=== PATIENT | male | born 1950 | race Caucasian/White ===

== ENCOUNTER 2018-12-29 16:22 | Emergency (ER) | payer MEDICARE, OTHER, SELFPAY ==
--- NOTE | 2018-12-29 16:26 | DI.RAD.S_ITS ---
PROCEDURE: XR CHEST 1V INDICATIONS: chest pain TECHNIQUE: One view of the chest was acquired. COMPARISON: None. FINDINGS: Surgical changes and devices: None. Lungs and pleura: Lungs are clear. No pleural effusions or pneumothorax. Mediastinum: Mediastinal contours appear normal. Heart size is normal. Large hiatal hernia Bones and chest wall: No suspicious bony lesions. Overlying soft tissues appear unremarkable. IMPRESSION: No acute disease. Large hiatal hernia. Dictated by: Brandon Castellano M.D. on 12/29/2018 at 15:45 Approved by: Brandon Castellano M.D. on 12/29/2018 at 15:45
[2018-12-29 16:40] LABS: Basophils Absolute Auto 100 /uL (0-100); Basophils Percent Auto 0.8 % (0-2); Eosinophils Absolute Auto 100 /uL (0-450); Eosinophils Percent Auto 1.4 % (2-4); Hematocrit 43.3 % (41-53); Hemoglobin 14.7 g/dL (13.5-17.5); Lymphocytes Absolute Auto 1100 /uL (1100-4500); Lymphocytes Percent Auto 13.4 % (25-40); Mean Corpuscular Hemoglobin 28.5 PG (26-34); Mean Corpuscular Volume 83.8 fL (80-100); Monocytes Absolute Auto 600 /uL (0-900); Monocytes Percent Auto 7.6 % (3-14); Neutrophils Absolute Auto 6400 /uL (1500-7000); Neutrophils Percent Auto 76.8 % (50-75); Platelet Count 154 X10^3/uL (150-400); Red Blood Cell Count 5.16 X10^6/uL (4.5-5.9); Red Cell Distribution Width 14.3 % (11.6-14.8); White Blood Cell Count 8.3 X10^3/uL (4.5-11.0)
[2018-12-29 16:41] LABS: Add Manual Diff / Slide Review SLIDE REVIEW
[2018-12-29 16:43] LABS: Alanine Aminotransferase 34 IU/L (21-72); Albumin 4.5 g/dL (3.5-5.0); Albumin Globulin Ratio 1.7 (1.0-2.8); Alkaline Phosphatase 102 U/L (38-126); Aspartate Aminotransferase 22 IU/L (17-59); Bilirubin Total 0.7 mg/dL (0.2-1.3); Blood Urea Nitrogen 16 mg/dL (9-20); Carbon Dioxide 27 mmol/L (22-32); Chloride 102 mmol/L (98-107); Creatine Kinase 60 U/L (55-170); Estimated Glomerular Filt Rate > 60.0 mL/min (>60); Globulin 2.7 g/dL (1.7-4.1); Glucose 134 mg/dL (80-110); HEMOLYSIS < 15 (0-50); Potassium 4.3 mmol/L (3.4-5.1); Sodium 137 mmol/L (137-145); Total Protein 7.2 g/dL (6.3-8.2)
[2018-12-29 16:54] LABS: B Type Natriuretic Peptide < 100 (<100)
[2018-12-29 16:56] LABS: Troponin I 0.061 ng/mL (0.01-0.034)
[2018-12-29 17:00] VITALS: BP 157/89; PULSE 92; RESP 15; O2SAT 98
[2018-12-29 17:05] LABS: RBC Morphology Normal Morphology
--- NOTE | 2018-12-29 17:28 | ED.CHESTPAIN ---
HPI - Chest Pain General Chief Complaint: Chest Pain Stated Complaint: sob upon exertion, intermittent chest pain Time Seen by Provider: 12/29/18 17:27 Source: patient and EMS Mode of arrival: EMS Limitations: no limitations History of Present Illness HPI narrative: 68-year-old male comes in with complaint of chest pain in the setting of exertion. Started 6 days ago. He states it has been happening once or twice daily. When he exerts himself. He gets discomfort in his kind of left upper chest axillary area radiating down his left arm. He states it will feel little short of breath. He might feel warm. He has not got particularly sweaty. He has not been nauseated or vomiting. He denies passing out. Patient does not have any known coronary artery disease but has not seen a physician in many years. He has a brother who is treated for hypertension and dyslipidemia. Denies any MIs or strokes in appearance course of blinks. He smokes cigars. Drinks alcohol daily 1-2 alcoholic drinks sometimes hard liquor sometimes severe. Denies illicit. Related Data Home Medications Medication Instructions Recorded Confirmed aspirin 325 mg PO DAILY PRN 12/29/18 12/29/18 aspirin [Aspirin Low Dose] 81 mg PO DAILY 12/29/18 12/29/18 Allergies Allergy/AdvReac Type Severity Reaction Status Date / Time No Known Drug Allergies Allergy Verified 12/29/18 18:02 Review of Systems Review of Systems ROS Unobtainable: All systems reviewed & are unremarkable except as noted in HPI and below Constitutional Denies fever(s) Cardiovascular Denies chest pain at rest, Reports chest pain with activity, Denies diaphoresis, Denies syncope, Denies edema, Denies irregular heart rhythm, Denies lightheadedness, Reports radiating jaw, neck or arm pain, Denies palpitations, Denies dyspnea, Reports dyspnea on exertion and Denies orthopnea Respiratory Denies dyspnea and Reports dyspnea on exertion Gastrointestinal Gastrointestinal: Denies abdominal pain, Denies change in bowel habits, Denies diarrhea, Denies nausea and Denies vomiting Genitourinary Denies dysuria and Denies urinary frequency Integumentary/Breasts Denies rash Neurologic Denies syncope Endocrine Denies palpitations [facility] Surgical History H/O: knee surgery (Chronic) History of inguinal hernia repair (Chronic) Social History (Updated 12/29/18 @ 17:52 by Claudia Brasher DO) Smoking Status: Current some day smoker Smokeless tobacco user: other alcohol intake: current substance use type: does not use Social History Smoking Status: Current some day smoker Smokeless tobacco user: other alcohol intake: current substance use type: does not use Exam Narrative Exam Narrative: GENERAL: Alert and oriented x three, obese, well-appearing male in no acute distress. HEENT: Head normocephalic, atraumatic, EOMI, xanthelasma bilaterally, pupils reactive, face symmetric, moist mucous membranes NECK: Supple, full range of motion CARDIOVASCULAR: Regular rate and rhythm without murmurs, rubs or gallops. RESPIRATORY: Breath sounds equal bilaterally, no wheezes rales or rhonchi. ABDOMEN: Soft, nontender. Normoactive bowel sounds all 4 quadrants. No guarding or rebound, rigidity, no mass : No CVA tenderness EXTREMITIES: Normal range of motion, no edema. Neurovascularly intact NEUROLOGICAL: Cranial nerves II through XII grossly intact. Moving all extremities SKIN: Warm, dry, no petechiae, no rashes or lesions on chest or arm noted. Initial Vital Signs Initial Vital Signs: Vital Signs Pulse Rate 92 H 12/29/18 17:00 Respiratory Rate 15 12/29/18 17:00 Blood Pressure 157/89 H 12/29/18 17:00 Pulse Oximetry 98 12/29/18 17:00 Scores HEART Score Heart Score history: Highly Suspicious Heart Score EKG: Significant ST depression Heart Score Age: > or = 65 years old Heart Score risk factors: 1-2 risk factors Heart Score troponin: 1-3 times normal limit Heart Score Total: 8 Course Orders Ordered: ED Orders 12/29/18 16:25 BNP [B Type Natriuretic Peptide] Stat CBC [Complete Blood Count AUTO DIFF] Stat Comprehensive Metabolic Panel Stat Troponin & CK Cardiac Panel Stat 12/29/18 16:26 XR chest 1V Stat EKG-12 Lead Stat 12/29/18 17:36 Troponin & CK Cardiac Panel Stat 12/29/18 19:30 EKG-12 Lead Stat Discontinued Medications Metoprolol Tartrate (Lopressor) 25 mg PO NOW ONE Stop: 12/29/18 19:24 Last Admin: 12/29/18 19:28 Dose: 25 mg Vital Signs - 8 hr 12/29/18 17:00 12/29/18 18:00 12/29/18 18:14 Pulse Rate 92 H 88 89 Respiratory Rate 15 16 18 Blood Pressure [Left Arm] 157/89 H 162/106 H 171/105 H Pulse Oximetry 98 100 98 MDM - Chest Pain Lab Data Attestation: I reviewed the patient's lab results. Result diagrams: 12/29/18 16:25 12/29/18 16:25 Lab Results 12/29/18 12/29/18 Range/Units 16:25 16:25 WBC 8.3 (4.5-11.0) X10^3/uL RBC 5.16 (4.5-5.9) X10^6/uL Hgb 14.7 (13.5-17.5) g/dL Hct 43.3 (41-53) % MCV 83.8 (80-100) fL MCH 28.5 (26-34) PG MCHC 34.0 (30-36) % RDW 14.3 (11.6-14.8) % Plt Count 154 (150-400) X10^3/uL Neut % (Auto) 76.8 H (50-75) % Lymph % (Auto) 13.4 L (25-40) % [place] % (Auto) 7.6 (3-14) % Eos % (Auto) 1.4 L (2-4) % Baso % (Auto) 0.8 (0-2) % Neut # (Auto) 6400 (6834-8174) /uL Lymph # (Auto) 1100 (6226-5569) /uL [place] # (Auto) 600 (0-900) /uL Eos # (Auto) 100 (0-450) /uL Baso # (Auto) 100 (0-100) /uL Plt Morphology Comment RBC Morphology Normal morphology Sodium 137 (137-145) mmol/L Potassium 4.3 (3.4-5.1) mmol/L Chloride 102 (98-107) mmol/L Carbon Dioxide 27 (22-32) mmol/L BUN 16 (9-20) mg/dL Creatinine 1.00 (0.66-1.25) mg/dL Estimated GFR > 60.0 (>60) mL/min BUN/Creatinine Ratio 16.0 (6-22) Glucose 134 H (80-110) mg/dL Calcium 11.0 H (8.4-10.2) mg/dL Total Bilirubin 0.7 (0.2-1.3) mg/dL AST 22 (17-59) IU/L ALT 34 (21-72) IU/L Alkaline Phosphatase 102 (38-126) U/L Total Creatine Kinase 60 (55-170) U/L CK-MB (CK-2) TNP CK-MB (CK-2) Rel Index TNP Troponin I 0.061 H (0.01-0.034) ng/mL B-Natriuretic Peptide < 100 (<100) Total Protein 7.2 (6.3-8.2) g/dL Albumin 4.5 (3.5-5.0) g/dL Globulin 2.7 (1.7-4.1) g/dL Albumin/Globulin Ratio 1.7 (1.0-2.8) Urine Dip Bedside Urine Glucose Negative Bedside Urine Bilirubin - Negative Bedside Urine Ketone - Negative Urine Specific Anthony 1.020 Bedside Urine Occult Blood - Negative Bedside Urine pH 6 Bedside Urine Protein - Negative Bedside Urine Urobilinogen - Negative Bedside Urine Nitrite - Negative Bedside Urine Leukocytes - Negative Esterase Imaging Data Chest x-ray: Radiologist's impression: [place] [address] XRay Report Signed Patient: Tatyana Givens#: [id number] : 1Acct:[id number] Age/Sex: 68 / MDate of Service: 12/29/18 Loc: ED Accession Number: [id number] Procedure: XR chest 1V Ordering Provider: Claudia Brasher D.O. PROCEDURE: XR CHEST 1V INDICATIONS: chest pain TECHNIQUE: One view of the chest was acquired. COMPARISON: None. FINDINGS: Surgical changes and devices: None. Lungs and pleura: Lungs are clear. No pleural effusions or pneumothorax. Mediastinum: Mediastinal contours appear normal. Heart size is normal. Large hiatal hernia Bones and chest wall: No suspicious bony lesions. Overlying soft tissues appear unremarkable. IMPRESSION: No acute disease. Large hiatal hernia. Dictated by: Brandon Castellano M.D. on 12/29/2018 at 15:45 Approved by: Brandon Castellano M.D. on 12/29/2018 at 15:45 ECG Data Attestation: I personally reviewed and interpreted this ECG as follows: Prior ECG tracings: not available for review Interpretation: Sinus rhythm and a rate of 72 TX 155 QRS of 90 QTC of 370. Nonspecific change. Patient appears to have a little bit of ST depression in V4,5 and 6. No elevation noted. EKG 2. Shows sinus rhythm, rate 88 P are 154 QRS of 88 with a QTC of 372. Patient does appear to have some ST elevation in lateral leads V3 V4, no ST elevation is appreciated. Segments appear similar to prior from today although patient has little bit more low voltage in lead 2 MDM Narrative Medical decision making narrative: Patient's history is concerning for a stable angina. Patient's symptoms started just 6 days ago. Patient took 325 mg aspirin in the morning and then took an additional 324 mg aspirin this afternoon. Lab work does show an indeterminate troponin. Patient any prior troponin. Glucose is slightly elevated. Chest x-ray shows large hiatal hernia but no acute changes. I suspect patient has a stable angina. He does not have any follow-up with primary care. Spoke with Cardiology Dr. Rosario, she recommend stress testing. If positive or elevation she would recommend cardiac catheterization. If patient is transferred to [facility] she would asked to be re-contacted so they will see the patient tomorrow. Spoke with Dr. Milton hospitalist at [facility]. If patient does not have troponin trending upward, they would accept patient for observation and stress testing in the morning. If patient's troponin is trending upward/positive she would ask for transfer. Patient is also call to the hospitalist at [facility]. Discussed at length with patient he is a little reluctant initially to his day but he does not have a primary care and I think he would have difficulty getting all of the care that he needs it does not stay for treatment. He is willing to stay at least for the 2nd troponin and EKG. Repeat EKG appears similar to first. Troponin pending while signed out to Dr. Pickard. Discharge Plan Departure Clinical Impression: Stable angina Prescriptions: No Action aspirin [Aspirin Low Dose] 81 mg Tablet,Delayed Release (Dr/Ec) 81 mg PO DAILY RF: 0 aspirin 325 mg Tablet 325 mg PO DAILY PRN (Reason: Pain, Mild) RF: 0
--- NOTE | 2018-12-29 17:49 | ED_ITS ---
HPI - Chest Pain General Chief Complaint: Chest Pain Stated Complaint: sob upon exertion, intermittent chest pain Time Seen by Provider: 12/29/18 17:27 Source: patient and EMS Mode of arrival: EMS Limitations: no limitations History of Present Illness HPI narrative: 68-year-old male comes in with complaint of chest pain in the setting of exertion. Started 6 days ago. He states it has been happening once or twice daily. When he exerts himself. He gets discomfort in his kind of left upper chest axillary area radiating down his left arm. He states it will feel little short of breath. He might feel warm. He has not got particularly sweaty. He has not been nauseated or vomiting. He denies passing out. Patient does not have any known coronary artery disease but has not seen a physician in many years. He has a brother who is treated for hypertension and dyslipidemia. Denies any MIs or strokes in appearance course of blinks. He smokes cigars. Drinks alcohol daily 1-2 alcoholic drinks sometimes hard liquor sometimes severe. Denies illicit. Related Data Home Medications Medication Instructions Recorded Confirmed aspirin 325 mg PO DAILY PRN 12/29/18 12/29/18 aspirin [Aspirin Low Dose] 81 mg PO DAILY 12/29/18 12/29/18 Allergies Allergy/AdvReac Type Severity Reaction Status Date / Time No Known Drug Allergies Allergy Verified 12/29/18 18:02 Review of Systems Review of Systems ROS Unobtainable: All systems reviewed & are unremarkable except as noted in HPI and below Constitutional Denies fever(s) Cardiovascular Denies chest pain at rest, Reports chest pain with activity, Denies diaphoresis, Denies syncope, Denies edema, Denies irregular heart rhythm, Denies lightheadedness, Reports radiating jaw, neck or arm pain, Denies palpitations, Denies dyspnea, Reports dyspnea on exertion and Denies orthopnea Respiratory Denies dyspnea and Reports dyspnea on exertion Gastrointestinal Gastrointestinal: Denies abdominal pain, Denies change in bowel habits, Denies diarrhea, Denies nausea and Denies vomiting Genitourinary Denies dysuria and Denies urinary frequency Integumentary/Breasts Denies rash Neurologic Denies syncope Endocrine Denies palpitations [facility] Surgical History H/O: knee surgery (Chronic) History of inguinal hernia repair (Chronic) Social History (Updated 12/29/18 @ 17:52 by Claudia Brasher DO) Smoking Status: Current some day smoker Smokeless tobacco user: other alcohol intake: current substance use type: does not use Social History Smoking Status: Current some day smoker Smokeless tobacco user: other alcohol intake: current substance use type: does not use Exam Narrative Exam Narrative: GENERAL: Alert and oriented x three, obese, well-appearing male in no acute distress. HEENT: Head normocephalic, atraumatic, EOMI, xanthelasma bilaterally, pupils reactive, face symmetric, moist mucous membranes NECK: Supple, full range of motion CARDIOVASCULAR: Regular rate and rhythm without murmurs, rubs or gallops. RESPIRATORY: Breath sounds equal bilaterally, no wheezes rales or rhonchi. ABDOMEN: Soft, nontender. Normoactive bowel sounds all 4 quadrants. No guarding or rebound, rigidity, no mass : No CVA tenderness EXTREMITIES: Normal range of motion, no edema. Neurovascularly intact NEUROLOGICAL: Cranial nerves II through XII grossly intact. Moving all extremities SKIN: Warm, dry, no petechiae, no rashes or lesions on chest or arm noted. Initial Vital Signs Initial Vital Signs: Vital Signs Pulse Rate 92 H 12/29/18 17:00 Respiratory Rate 15 12/29/18 17:00 Blood Pressure 157/89 H 12/29/18 17:00 Pulse Oximetry 98 12/29/18 17:00 Scores HEART Score Heart Score history: Highly Suspicious Heart Score EKG: Significant ST depression Heart Score Age: > or = 65 years old Heart Score risk factors: 1-2 risk factors Heart Score troponin: 1-3 times normal limit Heart Score Total: 8 Course Orders Ordered: ED Orders 12/29/18 16:25 BNP [B Type Natriuretic Peptide] Stat CBC [Complete Blood Count AUTO DIFF] Stat Comprehensive Metabolic Panel Stat Troponin & CK Cardiac Panel Stat 12/29/18 16:26 XR chest 1V Stat EKG-12 Lead Stat 12/29/18 17:36 Troponin & CK Cardiac Panel Stat 12/29/18 19:30 EKG-12 Lead Stat Discontinued Medications Metoprolol Tartrate (Lopressor) 25 mg PO NOW ONE Stop: 12/29/18 19:24 Last Admin: 12/29/18 19:28 Dose: 25 mg Vital Signs - 8 hr 12/29/18 17:00 12/29/18 18:00 12/29/18 18:14 Pulse Rate 92 H 88 89 Respiratory Rate 15 16 18 Blood Pressure [Left Arm] 157/89 H 162/106 H 171/105 H Pulse Oximetry 98 100 98 MDM - Chest Pain Lab Data Attestation: I reviewed the patient's lab results. Result diagrams: 12/29/18 16:25 12/29/18 16:25 Lab Results 12/29/18 12/29/18 Range/Units 16:25 16:25 WBC 8.3 (4.5-11.0) X10^3/uL RBC 5.16 (4.5-5.9) X10^6/uL Hgb 14.7 (13.5-17.5) g/dL Hct 43.3 (41-53) % MCV 83.8 (80-100) fL MCH 28.5 (26-34) PG MCHC 34.0 (30-36) % RDW 14.3 (11.6-14.8) % Plt Count 154 (150-400) X10^3/uL Neut % (Auto) 76.8 H (50-75) % Lymph % (Auto) 13.4 L (25-40) % [place] % (Auto) 7.6 (3-14) % Eos % (Auto) 1.4 L (2-4) % Baso % (Auto) 0.8 (0-2) % Neut # (Auto) 6400 (6910-9708) /uL Lymph # (Auto) 1100 (2531-9788) /uL [place] # (Auto) 600 (0-900) /uL Eos # (Auto) 100 (0-450) /uL Baso # (Auto) 100 (0-100) /uL Plt Morphology Comment RBC Morphology Normal morphology Sodium 137 (137-145) mmol/L Potassium 4.3 (3.4-5.1) mmol/L Chloride 102 (98-107) mmol/L Carbon Dioxide 27 (22-32) mmol/L BUN 16 (9-20) mg/dL Creatinine 1.00 (0.66-1.25) mg/dL Estimated GFR > 60.0 (>60) mL/min BUN/Creatinine Ratio 16.0 (6-22) Glucose 134 H (80-110) mg/dL Calcium 11.0 H (8.4-10.2) mg/dL Total Bilirubin 0.7 (0.2-1.3) mg/dL AST 22 (17-59) IU/L ALT 34 (21-72) IU/L Alkaline Phosphatase 102 (38-126) U/L Total Creatine Kinase 60 (55-170) U/L CK-MB (CK-2) TNP CK-MB (CK-2) Rel Index TNP Troponin I 0.061 H (0.01-0.034) ng/mL B-Natriuretic Peptide < 100 (<100) Total Protein 7.2 (6.3-8.2) g/dL Albumin 4.5 (3.5-5.0) g/dL Globulin 2.7 (1.7-4.1) g/dL Albumin/Globulin Ratio 1.7 (1.0-2.8) Urine Dip Bedside Urine Glucose Negative Bedside Urine Bilirubin - Negative Bedside Urine Ketone - Negative Urine Specific [place] 1.020 Bedside Urine Occult Blood - Negative Bedside Urine pH 6 Bedside Urine Protein - Negative Bedside Urine Urobilinogen - Negative Bedside Urine Nitrite - Negative Bedside Urine Leukocytes - Negative Esterase Imaging Data Chest x-ray: Radiologist's impression: [place] [address] XRay Report Signed Patient: Tatyana Givens#: [id number] : 1Acct:[id number] Age/Sex: 68 / MDate of Service: 12/29/18 Loc: ED Accession Number: [id number] Procedure: XR chest 1V Ordering Provider: Claudia Brasher D.O. PROCEDURE: XR CHEST 1V INDICATIONS: chest pain TECHNIQUE: One view of the chest was acquired. COMPARISON: None. FINDINGS: Surgical changes and devices: None. Lungs and pleura: Lungs are clear. No pleural effusions or pneumothorax. Mediastinum: Mediastinal contours appear normal. Heart size is normal. Large hiatal hernia Bones and chest wall: No suspicious bony lesions. Overlying soft tissues appear unremarkable. IMPRESSION: No acute disease. Large hiatal hernia. Dictated by: Brandon Castellano M.D. on 12/29/2018 at 15:45 Approved by: Brandon Castellano M.D. on 12/29/2018 at 15:45 ECG Data Attestation: I personally reviewed and interpreted this ECG as follows: Prior ECG tracings: not available for review Interpretation: Sinus rhythm and a rate of 72 SD 155 QRS of 90 QTC of 370. Nonspecific change. Patient appears to have a little bit of ST depression in V4,5 and 6. No elevation noted. EKG 2. Shows sinus rhythm, rate 88 P are 154 QRS of 88 with a QTC of 372. Patient does appear to have some ST elevation in lateral leads V3 V4, no ST elevation is appreciated. Segments appear similar to prior from today although patient has little bit more low voltage in lead 2 MDM Narrative Medical decision making narrative: Patient's history is concerning for a stable angina. Patient's symptoms started just 6 days ago. Patient took 325 mg aspirin in the morning and then took an additional 324 mg aspirin this afternoon. Lab work does show an indeterminate troponin. Patient any prior troponin. Glucose is slightly elevated. Chest x-ray shows large hiatal hernia but no acute changes. I suspect patient has a stable angina. He does not have any follow-up with primary care. Spoke with Cardiology Dr. Rosario, she recommend stress testing. If positive or elevation she would recommend cardiac catheterization. If patient is transferred to [facility] she would asked to be re-contacted so they will see the patient tomorrow. Spoke with Dr. Milton hospitalist at [facility]. If patient does not have troponin trending upward, they would accept patient for observation and stress testing in the morning. If patient's troponin is trending upward/positive she would ask for transfer. Patient is also call to the hospitalist at [facility]. Discussed at length with patient he is a little reluctant initially to his day but he does not have a primary care and I think he would have difficulty getting all of the care that he needs it does not stay for treatment. He is willing to stay at least for the 2nd troponin and EKG. Repeat EKG appears similar to first. Troponin pending while signed out to Dr. Pickard. Discharge Plan Departure Clinical Impression: Stable angina Prescriptions: No Action aspirin [Aspirin Low Dose] 81 mg Tablet,Delayed Release (Dr/Ec) 81 mg PO DAILY RF: 0 aspirin 325 mg Tablet 325 mg PO DAILY PRN (Reason: Pain, Mild) RF: 0
[2018-12-29 18:00] VITALS: BP 162/106; PULSE 88; RESP 16; O2SAT 100
[2018-12-29 18:14] VITALS: BP 171/105; PULSE 89; RESP 18; O2SAT 98
[2018-12-29] MEDS: METOPROLOL IR 25 MG TABLET PO (19:28)
[2018-12-29 19:54] LABS: Creatine Kinase 59 U/L (55-170)
[2018-12-29 20:07] LABS: Troponin I 0.055 ng/mL (0.01-0.034)
[2018-12-29 21:08] VITALS: BP 171/103; PULSE 73; RESP 14; O2SAT 100
--- NOTE | 2018-12-29 21:08 | PC.NURSE ---
210 notified of bp, no new orders, no changes to exam, pt denies pain or discomfort
[2018-12-29 22:25] VITALS: BP 171/101; PULSE 74; RESP 18; O2SAT 98
== END 2018-12-29 22:25 | disposition short-term general hospital (02) ==
PROVIDERS: Emergency Medicine; Emergency Provider Emergency Medicine
DX: I20.8 Other forms of angina pectoris (principal); R06.02 Shortness of breath
CPT/HCPCS: 36415; 71045; 80053; 81003; 82550; 83880; 84484; 85025; 93005; 93041; 99283; 99285

== ENCOUNTER → 2019-01-17 13:16 | Outpatient (CLI) | payer MEDICARE, OTHER, SELFPAY ==
[2019-01-17 14:01] LABS: Albumin 3.6 g/dL (3.5-5.0); BUN Creatinine Ratio 16.7 (6-22); Blood Urea Nitrogen 15 mg/dL (9-20); Carbon Dioxide 27 mmol/L (22-32); Chloride 104 mmol/L (98-107); Estimated Glomerular Filt Rate > 60.0 mL/min (>60); Glucose 175 mg/dL (80-110); HEMOLYSIS < 15 (0-50); Phosphorous 2.8 mg/dL (2.3-3.7); Potassium 4.3 mmol/L (3.4-5.1); Sodium 138 mmol/L (137-145)
== END ==
PROVIDERS: Visit Provider Internal Medicine Cardiovascular Disease
DX: I25.10 Atherosclerotic heart disease of native coronary artery without angina pectoris (principal)
CPT/HCPCS: 36415; 80069

== ENCOUNTER → 2020-06-15 09:32 | Outpatient (CLI) | payer MEDICARE, OTHER, SELFPAY | PROVIDERS: Referring Provider Internal Medicine; Visit Provider Internal Medicine | DX: M85.852 Other specified disorders of bone density and structure, left thigh (principal); E21.3 Hyperparathyroidism, unspecified | CPT/HCPCS: 77080 ==

== ENCOUNTER 2023-01-10 09:55 | Emergency (ER) | payer MEDICARE, OTHER, SELFPAY ==
[2023-01-10] VITALS (20 sets, daily range): BP systolic 125–145; BP diastolic 65–84; PULSE 57–100; RESP 15–23; TEMP 36.7; O2SAT 95–100; BMI 20.9
--- NOTE | 2023-01-10 10:01 | DI.MRI.S_ITS ---
PROCEDURE: MR LUMBAR SPINE WO CON INDICATIONS: R leg drop, weakness, numb, sent by PCP TECHNIQUE: Noncontrast sagittal T1 spin echo and T2 fast echo, sagittal STIR, and T2 fast spin echo through the lumbar spine. In cases with scoliosis, additional coronal T2 fast spin echo may be performed. COMPARISON: None. FINDINGS: Image quality: Excellent. Alignment and Curvature: There is normal bony alignment. Bone Marrow: Marrow is of normal overall signal. No acute vertebral body compression fractures. Spinal Cord: Conus medullaris terminates at the L1 level. Visualized cord demonstrates normal signal and size. Paraspinous Soft Tissues: Bilateral renal cysts measure up to 5.4 cm on the right. Edema in the right paraspinal musculature is also noted at the L4 and L5 levels without focal abscess T12-L1: Disc space narrowing and circumferential disc bulge results in mild central and no foraminal stenosis L1-L2: Normal appearance. L2-L3: Normal appearance. L3-L4: Disc space narrowing and circumferential disc bulge with hypertrophic facet joints. Moderate central stenosis. Moderate bilateral foraminal stenosis greater on the right. L4-L5: Disc space narrowing with circumferential disc bulge and hypertrophic facet joints present. Severe central stenosis. Moderate right and mild left foraminal stenosis. L5-S1: Disc space is preserved. No central stenosis. Mild hypertrophic facet joints present. No foraminal stenosis. IMPRESSION: Multilevel degenerative disc disease and arthropathy results in varying degrees of central and foraminal stenosis including severe central stenosis L4-5 Edema in the right posterior paraspinal musculature may reflect muscle strain or sprain. Differential would include myositis. No evidence of abscess Approved by: Adryan Lester M.D. on 01/10/2023 at 13:37
--- NOTE | 2023-01-10 10:02 | DI.RAD.S_ITS ---
PROCEDURE: XR CHEST 1V INDICATIONS: weakness TECHNIQUE: One view of the chest was acquired. COMPARISON: [facility], CR, XR CHEST 1V, 12/29/2018, 16:32. FINDINGS: Surgical changes and devices: None. Lungs and pleura: Lungs are clear. No pleural effusions or pneumothorax. Mediastinum: Mediastinal contours appear normal. Heart size is normal. Large hiatal hernia. Atherosclerotic vascular calcification noted in the aortic arch. Dense coronary artery calcification noted as well. Bones and chest wall: No suspicious bony lesions. Overlying soft tissues appear unremarkable. IMPRESSION: No acute cardiopulmonary findings. Large hiatal hernia, atherosclerotic calcification. Approved by: Adryan Lester M.D. on 01/10/2023 at 9:42
--- NOTE | 2023-01-10 10:18 | ED_ITS ---
HPI - Weakness General Chief complaint: Weakness Stated complaint: feeling bad, blood sugar problems Time Seen by Provider: 01/10/23 10:01 History of Present Illness HPI Narrative: 72-year-old male smoker with history of diabetes presents with a family friend and a chief complaint of feeling a bit weak and generally off. He states that he took his blood sugar this morning and bread over 200. He denies any headache or blurred vision, he has no neck or back pain and denies any fever or chills. He denies chest pain or shortness of breath. He has no nausea, vomiting or diarrhea. He denies any loss of control of bowel or bladder but states that sometimes he has a difficult time making it to the bathroom because his right leg has become increasingly weak over the past month. He denies trauma or injury, and as stated above no pain, he takes no blood thinners. He now walks with a cane because his right leg has become sufficiently weak. Additionally he complains of numbness of his right leg up to his knee. Related Data Home Medications Medication Instructions Recorded Confirmed aspirin 325 mg tablet 325 mg PO DAILY PRN Pain, Mild 12/29/18 12/29/18 aspirin 81 mg tablet,delayed 81 mg PO DAILY 12/29/18 12/29/18 release (Ria Low Dose Aspirin) Previous Rx's Medication Instructions Recorded gabapentin 300 mg capsule 300 mg PO BEDTIME #14 caps 01/10/23 ketorolac 10 mg tablet 10 mg PO Q6H PRN pain #14 tabs 01/10/23 Allergies Allergy/AdvReac Type Severity Reaction Status Date / Time No Known Drug Allergies Allergy Verified 12/29/18 18:02 Review of Systems Review of Systems Narrative: GENERAL: Denies chills, fatigue, malaise, fever, sweats. HEENT: Denies sinus pain, ear pain, sore throat, difficulty swallowing, dizziness. RESPIRATORY: Denies dyspnea, cough, wheezing, hemoptysis, sputum. CARDIOVASCULAR: Denies chest pain, palpitations, orthopnea, edema, GASTROINTESTINAL: Denies nausea, vomiting, abdominal pain, diarrhea, constipation, melena. : Denies dysuria, frequency, incontinence, hematuria, urinary retention. MUSCULOSKELETAL: See HPI SKIN: Denies rash, skin lesions, or other NEUROLOGIC: See HPI PSYCHIATRIC: No concerning psychosocial issues. 12 point review of systems is negative except for those stated above Patient History Surgical History H/O: knee surgery History of inguinal hernia repair Family History Brother Hypertension Hyperlipidemia Social History Smoking Status: Current some day smoker Smokeless tobacco user: other alcohol intake: current substance use type: does not use Smoking Status: Current some day smoker Exam Narrative Exam Narrative: GENERAL: [72] year old patient appears stated age. Thin with no obvious distress readily apparent HEAD: Atraumatic. Normocephalic. EYES: Pupils equal round and reactive. Extraocular motions intact. No scleral icterus. No injection or drainage. ENT: Nose without bleeding, purulent drainage. Throat without erythema, tonsillar hypertrophy or exudate. Airway patent. NECK: Trachea midline. Non tender CARDIOVASCULAR: Regular rate and rhythm without murmurs, gallops, or rubs. RESPIRATORY: Clear to auscultation. Breath sounds equal bilaterally. No wheezes, rales, or rhonchi. GASTROINTESTINAL: Abdomen soft, non-tender, nondistended. EXTREMITIES: No edema or joint tenderness. BACK: Nontender without deformity or crepitance. No flank tenderness. No saddle anesthesia, patient sufficiently weak to lift right leg off the cart, 5/5 strength left lower extremity. There is some lower and lateral numbness to the right leg NEURO: AOx3. Cranial nerves 2-12 grossly intact SKIN: No rash or erythema of visible areas Initial Vital Signs Initial Vital Signs: Vital Signs Temperature 98.1 F 01/10/23 09:57 Pulse Rate 87 01/10/23 09:57 Respiratory Rate 16 01/10/23 09:57 Blood Pressure 129/84 01/10/23 09:57 Pulse Oximetry 100 01/10/23 09:57 Oxygen Delivery Method Room Air 01/10/23 09:57 Course Orders Ordered: ED Orders 01/10/23 10:01 MR lumbar spine wo con Stat 01/10/23 10:02 Chest [XR chest 1V] Stat 01/10/23 10:16 C-Reactive Protein Quant Stat Complete Blood Count AUTO DIFF Stat Comprehensive Metabolic Panel Stat Lactate (Lactic Acid) Stat Lipase Stat Magnesium Stat NT-proBNP (BNP-Adult 18+) Stat PSA [Prostate Specific Antigen] Stat Prothrombin Time INR Stat Troponin & CK Cardiac Panel Stat 01/10/23 10:30 VBG [Venous Blood Gas] Stat 01/10/23 10:46 EKG-12 Lead Stat 01/10/23 12:03 CT chest abd pel w con Stat 01/10/23 15:14 XR knee RT 3V Stat Discontinued Medications Gabapentin (Gabapentin 300 Mg Capsule) 300 mg PO NOW ONE Stop: 01/10/23 11:34 Last Admin: 01/10/23 11:39 Dose: 300 mg Documented By: MAIDA Sodium Chloride (Normal Saline 0.9%) 1,000 mls @ 1,000 mls/hr IV BOLUS ONE Stop: 01/10/23 11:00 Last Infusion: 01/10/23 11:35 Dose: 0 mls/hr Documented By: Admin: 01/10/23 10:30 Dose: 1,000 mls/hr Documented By: MAIDA Sodium Chloride (Normal Saline 0.9%) 500 mls @ 1,000 mls/hr IV BOLUS ONE Stop: 01/10/23 11:52 Last Infusion: 01/10/23 13:05 Dose: 0 mls/hr Documented By: Admin: 01/10/23 11:36 Dose: 1,000 mls/hr Documented By: MAIDA Insulin Human Regular (Insulin Regular 100 Unit/Ml 3 Ml Vial) 5 unit SUBCUT NOW ONE Stop: 01/10/23 11:24 Last Admin: 01/10/23 11:29 Dose: 5 unit Documented By: MAIDA Co-signed By: MELVIN Ketorolac Tromethamine (Ketorolac 30 Mg/Ml Vial) 15 mg IV NOW ONE Stop: 01/10/23 11:34 Last Admin: 01/10/23 11:39 Dose: 15 mg Documented By: MAIDA Vital Signs Vital signs: Vital Signs - 8 hr 01/10/23 09:57 01/10/23 10:11 01/10/23 10:12 Temperature 98.1 F Pulse Rate 87 79 78 Respiratory Rate 16 17 22 Blood Pressure 129/84 Pulse Oximetry 100 100 100 Oxygen Delivery Method Room Air 01/10/23 10:12 01/10/23 10:30 01/10/23 10:31 Temperature Pulse Rate 77 Respiratory Rate 19 Blood Pressure 125/65 141/82 H Pulse Oximetry 100 Oxygen Delivery Method 01/10/23 10:31 01/10/23 11:00 01/10/23 11:30 Temperature Pulse Rate 77 79 Respiratory Rate 21 22 Blood Pressure 125/76 Pulse Oximetry 100 100 Oxygen Delivery Method 01/10/23 11:30 01/10/23 12:00 01/10/23 12:30 Temperature Pulse Rate 73 71 69 Respiratory Rate 23 18 15 Blood Pressure Pulse Oximetry 100 100 100 Oxygen Delivery Method 01/10/23 13:00 01/10/23 14:01 01/10/23 14:02 Temperature Pulse Rate 68 74 Respiratory Rate 17 Blood Pressure 145/78 H Pulse Oximetry 100 99 Oxygen Delivery Method 01/10/23 14:02 01/10/23 14:30 01/10/23 14:30 Temperature Pulse Rate 75 68 Respiratory Rate Blood Pressure 138/77 Pulse Oximetry 99 100 Oxygen Delivery Method Room Air 01/10/23 15:00 01/10/23 15:00 01/10/23 15:34 Temperature Pulse Rate 69 73 Respiratory Rate Blood Pressure 133/67 Pulse Oximetry 100 95 Oxygen Delivery Method 01/10/23 15:37 01/10/23 15:37 01/10/23 15:46 Temperature Pulse Rate 71 100 H Respiratory Rate Blood Pressure 142/78 H Pulse Oximetry 100 Oxygen Delivery Method Room Air 01/10/23 15:47 01/10/23 15:48 01/10/23 16:00 Temperature Pulse Rate 68 Respiratory Rate Blood Pressure 129/79 129/70 Pulse Oximetry 100 Oxygen Delivery Method 01/10/23 16:00 Temperature Pulse Rate 57 L Respiratory Rate Blood Pressure Pulse Oximetry 100 Oxygen Delivery Method MDM - Weakness Lab Data 01/10/23 10:16 01/10/23 10:16 Labs: Lab Results 01/10/23 01/10/23 01/10/23 Range/Units 10:16 10:16 10:16 WBC 9.1 (4.5-11.0) X10^3/uL RBC 4.41 L (4.5-5.9) X10^6/uL Hgb 12.9 L (13.5-17.5) g/dL Hct 39.1 L (41-53) % MCV 88.7 (80-100) fL MCH 29.3 (26-34) PG MCHC 33.1 (30-36) % RDW 14.3 (11.6-14.8) % Plt Count 150 (150-400) X10^3/uL Neut % (Auto) 83.0 H (50-75) % Lymph % (Auto) 9.4 L (25-40) % [place] % (Auto) 5.5 (3-14) % Eos % (Auto) 1.6 L (2-4) % Baso % (Auto) 0.5 (0-2) % Neut # (Auto) 7600 H (2879-8883) /uL Lymph # (Auto) 900 L (3946-8643) /uL [place] # (Auto) 500 (0-900) /uL Eos # (Auto) 100 (0-450) /uL Baso # (Auto) 0 (0-100) /uL PT 11.0 (10.1-12.7) SECONDS INR 1.0 (0.9-1.3) VBG pH (7.33-7.43) VBG pCO2 (45-50) mmHg VBG pO2 (35-45) mmHg VBG HCO3 (24-28) mmol/L VBG Total CO2 (24-29) mmol/L VBG O2 Saturation (70-75) % VBG Base Excess (0-4) mmol/L FiO2 Sodium 130 L (137-145) mmol/L Potassium 4.7 (3.4-5.1) mmol/L Chloride 102 (98-107) mmol/L Carbon Dioxide 18 L (22-32) mmol/L BUN 33 H (9-20) mg/dL Creatinine 1.49 H (0.66-1.25) mg/dL Estimated GFR 50 L (>60) mL/min BUN/Creatinine Ratio 22.1 H (6-22) Glucose 427 H (80-110) mg/dL Lactate (0.7-2.1) mmol/L Calcium 9.5 (8.4-10.2) mg/dL Magnesium 2.2 (1.6-2.3) mg/dL Total Bilirubin 0.3 (0.2-1.3) mg/dL AST 18 (17-59) IU/L ALT 41 (<50) IU/L Alkaline Phosphatase 87 (38-126) U/L Total Creatine Kinase 32 L (55-170) U/L CK-MB (CK-2) TNP CK-MB (CK-2) Rel Index TNP Troponin I < 0.012 (0.01-0.034) ng/mL C-Reactive Protein < 0.5 (<1.0) mg/dL NT-Pro-B Natriuret Pep 165 H (<125) pg/mL Total Protein 6.2 L (6.3-8.2) g/dL Albumin 3.8 (3.5-5.0) g/dL Globulin 2.4 (1.7-4.1) g/dL Albumin/Globulin Ratio 1.6 (1.0-2.8) Lipase 16 L (23-300) U/L Prostate Specific Ag (0.10-4.00) ng/mL 01/10/23 01/10/23 01/10/23 Range/Units 10:16 10:16 10:30 WBC (4.5-11.0) X10^3/uL RBC (4.5-5.9) X10^6/uL Hgb (13.5-17.5) g/dL Hct (41-53) % MCV (80-100) fL MCH (26-34) PG MCHC (30-36) % RDW (11.6-14.8) % Plt Count (150-400) X10^3/uL Neut % (Auto) (50-75) % Lymph % (Auto) (25-40) % [place] % (Auto) (3-14) % Eos % (Auto) (2-4) % Baso % (Auto) (0-2) % Neut # (Auto) (1720-1357) /uL Lymph # (Auto) (9609-8329) /uL [place] # (Auto) (0-900) /uL Eos # (Auto) (0-450) /uL Baso # (Auto) (0-100) /uL PT (10.1-12.7) SECONDS INR (0.9-1.3) VBG pH 7.25 L (7.33-7.43) VBG pCO2 44.9 L (45-50) mmHg VBG pO2 41 (35-45) mmHg VBG HCO3 20 L (24-28) mmol/L VBG Total CO2 21 L (24-29) mmol/L VBG O2 Saturation 67 L (70-75) % VBG Base Excess -8.0 L (0-4) mmol/L FiO2 21 Sodium (137-145) mmol/L Potassium (3.4-5.1) mmol/L Chloride (98-107) mmol/L Carbon Dioxide (22-32) mmol/L BUN (9-20) mg/dL Creatinine (0.66-1.25) mg/dL Estimated GFR (>60) mL/min BUN/Creatinine Ratio (6-22) Glucose (80-110) mg/dL Lactate 1.6 (0.7-2.1) mmol/L Calcium (8.4-10.2) mg/dL Magnesium (1.6-2.3) mg/dL Total Bilirubin (0.2-1.3) mg/dL AST (17-59) IU/L ALT (<50) IU/L Alkaline Phosphatase (38-126) U/L Total Creatine Kinase (55-170) U/L CK-MB (CK-2) CK-MB (CK-2) Rel Index Troponin I (0.01-0.034) ng/mL C-Reactive Protein (<1.0) mg/dL NT-Pro-B Natriuret Pep (<125) pg/mL Total Protein (6.3-8.2) g/dL Albumin (3.5-5.0) g/dL Globulin (1.7-4.1) g/dL Albumin/Globulin Ratio (1.0-2.8) Lipase (23-300) U/L Prostate Specific Ag 5.17 H (0.10-4.00) ng/mL Point of Care Testing Glucose POC 176 Urine Dip Bedside Urine Glucose 1000 mg/dl Bedside Urine Bilirubin - Negative Bedside Urine Ketone - Negative Urine Specific [place] 1.015 Bedside Urine Occult Blood - Negative Bedside Urine pH 5.0 Bedside Urine Protein - Negative Bedside Urine Urobilinogen - Negative Bedside Urine Nitrite - Negative Bedside Urine Leukocytes - Negative Esterase MDM Narrative Medical decision making narrative: CC: 72-year-old male with generalized fatigue and right leg weakness as well as elevated blood pressure Complicating co-morbidities: age, diabetes Data collected from: Patient Medical records reviewed: Prior notes reviewed in our EMR Differential considered, but not limited to: Diabetic emergency, electrolyte abnormality, cauda equina versus epidural abscess versus hematoma versus other Exam documented above, pertinent findings include: Frail and elderly, alert and oriented, heart rate regular, lungs clear, abdomen soft. Right lower extremity is measurably week though he is ambulatory in the department. Lab Test results independently reviewed as above. Pertinent findings: No leuko cytosis or left shift, no notable anemia, no DKA, hyperglycemia Independently reviewed EKG as above Imaging studies independently reviewed: Chest/Abd/Pelvis without acute findings, Lumbar MRI without cauda/abscess/hematoma Treatments: Fluids, insulin, gabapentin ketorolac Re-evaluations: Patient feeling better, no longer dizzy, weak or lightheaded, ambulatory in the department Discussion: Patient with reassuring history and physical, labs largely reassuring, initial hyperglycemia significantly improved after fluids and insulin. Patient ambulatory in the department after gabapentin ketorolac, lumbar MRI without significant findings, certainly no neurosurgical emergencies. Given unexplained weight loss CTs of chest abdomen and pelvis performed, no malignancies noted Disposition: see below, along with detailed discharge instructions that have been reviewed with patient as well as indications for ED re-evaluation and additional outpatient follow up Discharge Plan Departure Patient Disposition: Home Clinical Impression: Acute hyperglycemia, Acute lumbar radiculopathy Instructions: DI for Dehydration -- Adult, DI for Hyperglycemia -- Adult, DI for Lumbar Radiculopathy Activity Restrictions/Additional Instructions: *You have been diagnosed with [hyperglycemia, dehydration, lumbar radiculopathy] *What to do: *Please continue to take your regular medications as directed. [x ] New medication prescriptions sent to your pharmacy: [ [facility]] [ ] New medication written as a paper prescription [ ] No new medications given *Please follow up with your primary care provider in 2-3 days, call for an appointment. Let them know you were seen in the Emergency Department and that we ask that you be seen in follow up. We will electronically transmit a record of today's note if your PCP is in our system *If you do not have a primary care provider please contact the [facility] Resource line at [phone]. They will ask some questions about your medical history and help get you set up with a doctor in the community. *Return to Emergency Department if you should have any new, worsening or concerning symptoms, such as [fever greater than 101 F, shaking chills, worsening pain, persistent vomiting or other bothersome symptoms] Prescriptions: New ketorolac 10 mg tablet 10 mg PO Q6H PRN (Reason: pain) Qty: 14 0RF gabapentin 300 mg capsule 300 mg PO BEDTIME Qty: 14 0RF No Action aspirin [Ira Low Dose Aspirin] 81 mg Tablet,Delayed Release (Dr/Ec) 81 mg PO DAILY aspirin 325 mg Tablet 325 mg PO DAILY PRN (Reason: Pain, Mild) Stand Alone Forms: Patient Portal/API
[2023-01-10 10:29] LABS: Add Manual Diff / Slide Review NO; Basophils Absolute Auto 0 /uL (0-100); Basophils Percent Auto 0.5 % (0-2); Eosinophils Absolute Auto 100 /uL (0-450); Eosinophils Percent Auto 1.6 % (2-4); Hematocrit 39.1 % (41-53); Hemoglobin 12.9 g/dL (13.5-17.5); Lymphocytes Absolute Auto 900 /uL (1100-4500); Lymphocytes Percent Auto 9.4 % (25-40); Mean Corpuscular HGB Conc 33.1 % (30-36); Mean Corpuscular Hemoglobin 29.3 PG (26-34); Mean Corpuscular Volume 88.7 fL (80-100); Monocytes Absolute Auto 500 /uL (0-900); Monocytes Percent Auto 5.5 % (3-14); Neutrophils Absolute Auto 7600 /uL (1500-7000); Platelet Count 150 X10^3/uL (150-400); Red Blood Cell Count 4.41 X10^6/uL (4.5-5.9); Red Cell Distribution Width 14.3 % (11.6-14.8); White Blood Cell Count 9.1 X10^3/uL (4.5-11.0)
[2023-01-10] MEDS: SODIUM CHLORIDE 0.9% 1,000 ML 1000 ML IV (10:30)
[2023-01-10 10:41] LABS: Lactate (Lactic Acid) 1.6 mmol/L (0.7-2.1)
[2023-01-10 10:45] LABS: Alanine Aminotransferase 41 IU/L (<50); Albumin 3.8 g/dL (3.5-5.0); Albumin Globulin Ratio 1.6 (1.0-2.8); Alkaline Phosphatase 87 U/L (38-126); Aspartate Aminotransferase 18 IU/L (17-59); BUN Creatinine Ratio 22.1 (6-22); Bilirubin Total 0.3 mg/dL (0.2-1.3); Blood Urea Nitrogen 33 mg/dL (9-20); C-Reactive Protein Quant < 0.5 mg/dL (<1.0); Calcium 9.5 mg/dL (8.4-10.2); Carbon Dioxide 18 mmol/L (22-32); Chloride 102 mmol/L (98-107); Creatine Kinase 32 U/L (55-170); Estimated Glomerular Filt Rate 50 mL/min (>60); Globulin 2.4 g/dL (1.7-4.1); Glucose 427 mg/dL (80-110); HEMOLYSIS < 15 (0-50); Lipase 16 U/L (23-300); Magnesium 2.2 mg/dL (1.6-2.3); Potassium 4.7 mmol/L (3.4-5.1); Sodium 130 mmol/L (137-145); Total Protein 6.2 g/dL (6.3-8.2)
[2023-01-10 10:54] LABS: NT-proBNP (BNP-Adult 18+) 165 pg/mL (<125); Troponin I < 0.012 ng/mL (0.01-0.034)
[2023-01-10 11:12] LABS: HCO3 VBG 20 mmol/L (24-28); PCO2 VBG 44.9 mmHg (45-50); PO2 VBG 41 mmHg (35-45); Total CO2 VBG 21 mmol/L (24-29); pH VBG 7.25 (7.33-7.43)
[2023-01-10 11:13] LABS: Fractionated Inspired Oxygen 21; Oxygen Saturation VBG 67 % (70-75)
[2023-01-10] MEDS: INSULIN REGULAR 100 UNIT/ML 3 ML VIAL SUBCUT (11:29)
[2023-01-10] MEDS: SODIUM CHLORIDE 0.9% 500 ML 1000 ML IV (11:36)
[2023-01-10] MEDS: KETOROLAC 30 MG/ML VIAL 15 MG IV (11:39)
[2023-01-10] MEDS: GABAPENTIN 300 MG CAPSULE PO (11:39)
--- NOTE | 2023-01-10 12:03 | DI.CT.S_ITS ---
PROCEDURE: CT CHEST ABD PEL W CON INDICATIONS: profound weakness, back pain, weight loss TECHNIQUE: After the administration of intravenous contrast, 5 mm thick sections acquired from the lung apices to the symphysis. 2.5 mm thick coronal and sagittal reformats were acquired. Additional 7 mm thick coronal maximum intensity projection (MIP) reformats acquired through the lungs. Optional 10-minute delayed imaging may be performed from the kidneys to the bladder. For radiation dose reduction, the following was used: automated exposure control, adjustment of mA and/or kV according to patient size. COMPARISON: None. FINDINGS: Chest: Cardiovascular: Heart size is normal. No evidence of pulmonary embolism, aortic aneurysm or dissection. Dense coronary artery vascular calcification Lungs and pleural spaces: The lung braga are clear without nodule, infiltrate or interstitial prominence. Pleural spaces show no effusion or pneumothorax. Lymph nodes: No mediastinal, hilar or axillary adenopathy. Mediastinum: Unremarkable. Moderate hernia. Thyroid within normal limits. Chest Wall and Bones: Degenerative disc disease and arthropathy lower cervical spine results in moderate central stenosis C5-6 and C6-7 Abdomen and Pelvis: Liver: Normal in size and attenuation. No contour deformity present. Biliary system: No calcified cholelithiasis or pericholecystic inflammation. No intra or extrahepatic bile duct dilatation. Pancreas: Pancreatic atrophy and multifocal coarse calcifications may reflect sequelae of chronic pancreatitis. No focal mass lesion. Spleen: Normal in size and density. Adrenals: Normal morphology and density. Reproductive system: Massive prostate hypertrophy measures 7.8 x 5.9 x 9.0 cm Urinary system: Normal renal size and attenuation. And 2 cm left renal and 6.2 cm right renal cyst. Multiple right renal calculi measure up to 6 mm. No hydronephrosis bilaterally. Urinary bladder unremarkable. Gastrointestinal system: Moderate fecal debris throughout the colon without evidence of obstruction or inflammatory change. Appendix: No findings to suggest acute appendicitis. Lymph nodes: No mesenteric or retroperitoneal adenopathy. Peritoneal spaces: No free air. No free fluid. Vasculature: The IVC, aorta and iliac vasculature are unremarkable. Abdominal wall: Abdominal wall intact without evidence of ventral or inguinal hernias. Musculoskeletal: Normal bone mineralization. No acute fractures. IMPRESSION: 1. No acute CT findings in the chest abdomen and pelvis. 2. Chronic findings include hypertrophic prostate, a nonobstructive right renal calculi, lower cervical spine degenerative disc disease and arthropathy Approved by: Adryan Lester M.D. on 01/10/2023 at 12:14
[2023-01-10 14:01] LABS: Prostate Specific Antigen 5.17 ng/mL (0.10-4.00)
--- NOTE | 2023-01-10 15:14 | DI.RAD.S_ITS ---
PROCEDURE: XR KNEE RT 3V INDICATIONS: knee pain TECHNIQUE: 3 views of the knee were acquired. COMPARISON: None. FINDINGS: Bones: No fractures or dislocations. No suspicious bony lesions. Degenerative medial compartment joint space narrowing. Soft tissues: No joint effusion. No suspicious soft tissue calcifications. Atherosclerotic popliteal calcification IMPRESSION: No acute findings. Degenerative joint space narrowing and atherosclerotic vascular calcification Approved by: Adryan Lester M.D. on 01/10/2023 at 15:19
--- NOTE | 2023-01-10 15:41 | PC.NURSE ---
Patient ambulated to and from bathroom with his cane. Pt slow, but steady.
== END 2023-01-10 16:33 | disposition home or self-care (01) ==
PROVIDERS: Emergency Provider Emergency Medicine
DX: R73.9 Hyperglycemia, unspecified (principal); M54.16 Radiculopathy, lumbar region; R03.0 Elevated blood-pressure reading, without diagnosis of hypertension; R07.9 Chest pain, unspecified
CPT/HCPCS: 36415; 71045; 71260; 72148; 73562; 74177; 80053; 81003; 82550; 82805; 82962; 83605; 83690; 83735; 83880; 84153; 84484; 85025; 85610; 86140; 93005; 93010; 96361; 96372; 96374; 99284; 99285; J1885; Q9967

== ENCOUNTER 2025-04-20 15:52 | Inpatient (IN) | payer MEDICARE, OTHER, SELFPAY ==
[2025-04-20] VITALS (21 sets, daily range): BP systolic 108–173; BP diastolic 56–106; PULSE 62–112; RESP 12–25; TEMP 36.3–37; O2SAT 98–100; BMI 22.4; BMI 25.0
--- NOTE | 2025-04-20 16:15 | DI.RAD.S_ITS ---
PROCEDURE: XR CHEST 1V INDICATIONS: Shortness of breath TECHNIQUE: One view of the chest was acquired. COMPARISON: [facility], CR, XR CHEST 1V, 01/10/2023, 10:07. [facility], CR, XR CHEST 1V, 12/29/2018, 16:32. FINDINGS: Surgical changes and devices: None. Lungs and pleura: Right infrahilar atelectasis. Right small pneumothorax seen on the right lateral pleural margin.. Mediastinum: Large hiatal hernia. Bones and chest wall: No suspicious bony lesions. Overlying soft tissues appear unremarkable. IMPRESSION: 1. Right sided pneumothorax. 2. Large hiatal hernia. 3. No consolidative pneumonia or pulmonary edema. Communication: The above findings of right lateral pneumothorax were discussed with Dr. Hwang of the ER by Dr. Ring on 04/20/2025 at 5:03 p.m. [place] standard time. Dictated by: Kale Ring M.D. on 04/20/2025 at 17:00 Approved by: Kale Ring M.D. on 04/20/2025 at 17:03
--- NOTE | 2025-04-20 16:43 | EKG_ITS ---
[facility] [address] [place] [id number] Test Date: 2025-04-20 Pat Name: Luis Givens Department: [facility] Room: Gender: Male [employer] Equipment Mechanic: : 1950 Requested By: Order Number: [id number] Reading MD: Sony Elliott MD Measurements Intervals [place] Rate: 106 P: 57 HI: 158 QRS: 48 QRSD: 82 T: 67 QT: 338 QTc: 448 Interpretive Statements Sinus tachycardia Electronically Signed On 04-21-2025 7:37:31 PDT by Sony Elliott MD
--- NOTE | 2025-04-20 17:03 | ED.SOB ---
HPI - SOB/Dyspnea <Sony Hwang DO - Last Filed: 04/20/25 18:21> General Chief Complaint: Shortness of Breath/Dyspnea Stated Complaint: can't pee, swollen legs Time Seen by Provider: 04/20/25 16:28 Mode of arrival: Wheelchair History of Present Illness HPI Narrative: 74-year-old gentleman who has not seen a doctor in quite some time presents with bilateral leg swelling difficulty urinating that has been ongoing for the past few weeks with dyspnea on exertion unable to take a deep breath but no actual chest pain. He denies headache, dizziness, trauma, abdominal pain, nausea, vomiting, diarrhea, constipation, or any urinary complaints. Other than what is stated 14 point review of system is negative. Related Data Home Medications ?Medication ?Instructions ?Recorded ?Confirmed aspirin 81 mg tablet,delayed 81 mg PO DAILY 12/29/18 04/20/25 release (Ira Low Dose Aspirin) empagliflozin 25 mg tablet 25 mg PO DAILY 04/20/25 04/20/25 (Jardiance) losartan 25 mg tablet 25 mg PO DAILY 04/20/25 04/20/25 metoprolol succinate 25 mg 25 mg PO DAILY 04/20/25 04/20/25 tablet,extended release 24 hr rosuvastatin 40 mg tablet 40 mg PO DAILY 04/20/25 04/20/25 Allergies Allergy/AdvReac Type Severity Reaction Status Date / Time No Known Drug Allergies Allergy Verified 12/29/18 18:02 Review of Systems <Sony Hwang DO - Last Filed: 04/20/25 18:21> Review of Systems ROS Unobtainable: All systems reviewed & are unremarkable except as noted in HPI and below Patient History <Sony Hwang DO - Last Filed: 04/20/25 18:21> Surgical History H/O: knee surgery History of inguinal hernia repair Family History Brother Hypertension Hyperlipidemia Social History household members: none Smoking Status: Current some day smoker Smokeless tobacco user: other alcohol intake: current substance use type: does not use Smoking Status: Former smoker Alcohol type: beer Exam <Sony Hwang DO - Last Filed: 04/20/25 18:21> Narrative Exam Narrative: GENERAL: [74] year old patient appears stated age. Well-developed patient, in mild distress. HEAD: Atraumatic. Normocephalic. EYES: Pupils equal round and reactive. Extraocular motions intact. No scleral icterus. No injection or drainage. ENT: Nose without bleeding, purulent drainage. Throat without erythema, tonsillar hypertrophy or exudate. Airway patent. NECK: Trachea midline. Non tender CARDIOVASCULAR: Regular rate and rhythm without murmurs, gallops, or rubs. RESPIRATORY: Faint crackles at the bases with decreased breath sounds at the right side GASTROINTESTINAL: Abdomen soft, non-tender, nondistended. EXTREMITIES: L calf increased girth compared to R. +2 pitting edema b/l l/e, motor/sensory intact +2DP +2PT cap refill <2secs BACK: Nontender without deformity or crepitance. No flank tenderness. NEURO: AOx3. SKIN: No rash or erythema of visible areas Initial Vital Signs Initial Vital Signs: Vital Signs Temperature 98.6 F 04/20/25 16:06 Pulse Rate 112 H 04/20/25 16:06 Respiratory Rate 24 04/20/25 16:06 Blood Pressure 162/96 H 04/20/25 16:06 Pulse Oximetry 99 04/20/25 16:06 Oxygen Delivery Method Room Air 04/20/25 16:06 <Piyush Ugarte MD - Last Filed: 04/21/25 04:11> Initial Vital Signs Initial Vital Signs: Vital Signs Temperature 98.6 F 04/20/25 16:06 Pulse Rate 112 H 04/20/25 16:06 Respiratory Rate 24 04/20/25 16:06 Blood Pressure 162/96 H 04/20/25 16:06 Pulse Oximetry 99 04/20/25 16:06 Oxygen Delivery Method Room Air 04/20/25 16:06 Course <Sony Hwang DO - Last Filed: 04/20/25 18:21> Orders Ordered: ED Orders 04/20/25 19:50 Urinalysis and Microscopic Stat Urine Culture Stat 04/20/25 20:42 Venous Blood Gas Routine 04/20/25 20:44 BMP [Basic Metabolic Panel] Stat Acetaminophen (Acetaminophen 325 Mg Tablet) 1,000 mg PO Q6H PRN PRN Reason: Fever/Mild Pain (1-3) Aspirin (Aspirin Ec 81 Mg Tablet) 81 mg PO DAILY PANDA Atorvastatin Calcium (Atorvastatin 20 Mg Tablet) 80 mg PO DAILY PANDA INSULIN DRIP PREMIX (Myxredlin Drip Premix) 100 unit in 100 mls @ 1.497 mls/hr IV TITRATE PANDA; Protocol Last Titration: 04/20/25 22:00 Dose: 0.1 unit/kg/hr, 7.484 mls/hr Documented By: LEV Co-signed By: MAIKOL Titration: 04/20/25 21:52 Dose: 0.02 unit/kg/hr, 1.4 mls/hr Documented By: DOMINIC Co-signed By: JOCELYNN Admin: 04/20/25 21:24 Dose: 0.02 unit/kg/hr, 1.4 mls/hr Documented By: DOMINIC Co-signed By: MERRY Dextrose (D10w) 100 mls @ 1,200 mls/hr IV PRN PRN PRN Reason: Hypoglycemia Last Infusion: 04/21/25 03:32 Dose: Infused Documented By: Admin: 04/21/25 03:27 Dose: 1,200 mls/hr Documented By: LEV Dextrose/Sodium Chloride (Dextrose 5%-0.45% Ns) 1,000 mls @ 150 mls/hr IV CONT PANDA Last Admin: 04/21/25 03:59 Dose: 150 mls/hr Documented By: LEV Metoprolol Succinate (Metoprolol Er 25 Mg Tablet) 25 mg PO DAILY PANDA Naloxone HCl (Naloxone 0.4 Mg/Ml Vial) 0.2 mg IV Q2MIN PRN PRN Reason: Opiate Reversal Oxycodone HCl (Oxycodone Ir 5 Mg Tablet) 5 mg PO Q3H PRN PRN Reason: Pain, Moderate (4-6) Pantoprazole Sodium (Pantoprazole 40 Mg Vial) 40 mg IV DAILY PANDA Discontinued Medications POTASSIUM CHLORIDE IN WATER (Potassium Cl 10 Meq/100 Ml Kassandra) 10 meq in 100 mls @ 100 mls/hr IV Q1H PANDA Stop: 04/20/25 20:14 Last Infusion: 04/20/25 21:06 Dose: Infused Documented By: Admin: 04/20/25 20:01 Dose: 100 mls/hr Documented By: Infusion: 04/20/25 19:40 Dose: Infused Documented By: Admin: 04/20/25 18:35 Dose: 100 mls/hr Documented By: ANDREA Sodium Chloride (Normal Saline 0.9%) 1,000 mls @ 1,000 mls/hr IV BOLUS ONE Stop: 04/20/25 19:07 Last Infusion: 04/20/25 21:06 Dose: Infused Documented By: Admin: 04/20/25 18:35 Dose: 1,000 mls/hr Documented By: ANDREA Ceftriaxone Sodium 1,000 mg/ (Sodium Chloride) 100 mls @ 200 mls/hr IV NOW ONE Stop: 04/20/25 18:12 Last Infusion: 04/20/25 19:31 Dose: Infused Documented By: Admin: 04/20/25 18:36 Dose: 200 mls/hr Documented By: ANDREA Piperacillin Sod/Tazobactam (Sod 4.5 gm/ Sodium Chloride) 100 mls @ 200 mls/hr IV NOW ONE Stop: 04/20/25 20:43 Last Infusion: 04/20/25 21:53 Dose: Infused Documented By: Admin: 04/20/25 20:56 Dose: 200 mls/hr Documented By: DOMINIC Vancomycin HCl 2,000 mg/ (Sodium Chloride) 500 mls @ 250 mls/hr IV NOW ONE Stop: 04/20/25 20:43 Last Admin: 04/21/25 00:59 Dose: Not Given Documented By: LEV Vancomycin HCl 2,000 mg/ (Sodium Chloride) 500 mls @ 250 mls/hr IV NOW ONE Stop: 04/21/25 00:44 Vancomycin HCl/Dextrose (Vancomycin) 2,000 mg in 400 mls @ 200 mls/hr IV NOW ONE Stop: 04/21/25 02:29 Last Admin: 04/21/25 01:02 Dose: 200 mls/hr Documented By: LEV Insulin Human Regular (Insulin Regular 100 Unit/Ml 3 Ml Vial) 10 unit IV NOW ONE Stop: 04/20/25 17:35 Last Admin: 04/20/25 17:46 Dose: 10 unit Documented By: ANDREA Co-signed By: MARIAA Lidocaine HCl (Lidocaine 2% (Glydo) 6 Ml Gel) 6 ml TOP NOW ONE Stop: 04/20/25 19:27 Last Admin: 04/20/25 19:30 Dose: 6 ml Documented By: ANJANA Morphine Sulfate (Morphine 4 Mg/Ml Inj) 4 mg IV NOW ONE Stop: 04/20/25 17:15 Last Admin: 04/20/25 17:22 Dose: 4 mg Documented By: SAURABH Potassium Chloride (Potassium Chloride 20 Meq/15 Ml Udc) 40 meq PO NOW ONE Stop: 04/20/25 18:08 Last Admin: 04/20/25 18:42 Dose: 40 meq Documented By: RLC Vital Signs Vital signs: Vital Signs - 8 hr 04/20/25 20:30 04/20/25 20:30 Pulse Rate 77 Respiratory Rate 16 Blood Pressure 117/63 Pulse Oximetry 100 <Piyush Ugarte MD - Last Filed: 04/21/25 04:11> Orders Ordered: ED Orders 04/20/25 19:50 Urinalysis and Microscopic Stat Urine Culture Stat 04/20/25 20:42 Venous Blood Gas Routine 04/20/25 20:44 BMP [Basic Metabolic Panel] Stat Acetaminophen (Acetaminophen 325 Mg Tablet) 1,000 mg PO Q6H PRN PRN Reason: Fever/Mild Pain (1-3) Aspirin (Aspirin Ec 81 Mg Tablet) 81 mg PO DAILY PANDA Atorvastatin Calcium (Atorvastatin 20 Mg Tablet) 80 mg PO DAILY PANDA INSULIN DRIP PREMIX (Myxredlin Drip Premix) 100 unit in 100 mls @ 1.497 mls/hr IV TITRATE PANDA; Protocol Last Titration: 04/20/25 22:00 Dose: 0.1 unit/kg/hr, 7.484 mls/hr Documented By: LEV Co-signed By: MAIKOL Titration: 04/20/25 21:52 Dose: 0.02 unit/kg/hr, 1.4 mls/hr Documented By: KW Co-signed By: JOCELYNN Admin: 04/20/25 21:24 Dose: 0.02 unit/kg/hr, 1.4 mls/hr Documented By: KW Co-signed By: MERRY Dextrose (D10w) 100 mls @ 1,200 mls/hr IV PRN PRN PRN Reason: Hypoglycemia Last Infusion: 04/21/25 03:32 Dose: Infused Documented By: Admin: 04/21/25 03:27 Dose: 1,200 mls/hr Documented By: LEV Dextrose/Sodium Chloride (Dextrose 5%-0.45% Ns) 1,000 mls @ 150 mls/hr IV CONT PANDA Last Admin: 04/21/25 03:59 Dose: 150 mls/hr Documented By: LEV Metoprolol Succinate (Metoprolol Er 25 Mg Tablet) 25 mg PO DAILY [facility] Naloxone HCl (Naloxone 0.4 Mg/Ml Vial) 0.2 mg IV Q2MIN PRN PRN Reason: Opiate Reversal Oxycodone HCl (Oxycodone Ir 5 Mg Tablet) 5 mg PO Q3H PRN PRN Reason: Pain, Moderate (4-6) Pantoprazole Sodium (Pantoprazole 40 Mg Vial) 40 mg IV DAILY PANDA Discontinued Medications POTASSIUM CHLORIDE IN WATER (Potassium Cl 10 Meq/100 Ml Kassandra) 10 meq in 100 mls @ 100 mls/hr IV Q1H PANDA Stop: 04/20/25 20:14 Last Infusion: 04/20/25 21:06 Dose: Infused Documented By: Admin: 04/20/25 20:01 Dose: 100 mls/hr Documented By: Infusion: 04/20/25 19:40 Dose: Infused Documented By: Admin: 04/20/25 18:35 Dose: 100 mls/hr Documented By: ANDREA Sodium Chloride (Normal Saline 0.9%) 1,000 mls @ 1,000 mls/hr IV BOLUS ONE Stop: 04/20/25 19:07 Last Infusion: 04/20/25 21:06 Dose: Infused Documented By: Admin: 04/20/25 18:35 Dose: 1,000 mls/hr Documented By: ANDREA Ceftriaxone Sodium 1,000 mg/ (Sodium Chloride) 100 mls @ 200 mls/hr IV NOW ONE Stop: 04/20/25 18:12 Last Infusion: 04/20/25 19:31 Dose: Infused Documented By: Admin: 04/20/25 18:36 Dose: 200 mls/hr Documented By: ANDREA Piperacillin Sod/Tazobactam (Sod 4.5 gm/ Sodium Chloride) 100 mls @ 200 mls/hr IV NOW ONE Stop: 04/20/25 20:43 Last Infusion: 04/20/25 21:53 Dose: Infused Documented By: Admin: 04/20/25 20:56 Dose: 200 mls/hr Documented By: DOMINIC Vancomycin HCl 2,000 mg/ (Sodium Chloride) 500 mls @ 250 mls/hr IV NOW ONE Stop: 04/20/25 20:43 Last Admin: 04/21/25 00:59 Dose: Not Given Documented By: LEV Vancomycin HCl 2,000 mg/ (Sodium Chloride) 500 mls @ 250 mls/hr IV NOW ONE Stop: 04/21/25 00:44 Vancomycin HCl/Dextrose (Vancomycin) 2,000 mg in 400 mls @ 200 mls/hr IV NOW ONE Stop: 04/21/25 02:29 Last Admin: 04/21/25 01:02 Dose: 200 mls/hr Documented By: LEV Insulin Human Regular (Insulin Regular 100 Unit/Ml 3 Ml Vial) 10 unit IV NOW ONE Stop: 04/20/25 17:35 Last Admin: 04/20/25 17:46 Dose: 10 unit Documented By: ANDREA Co-signed By: MARIAA Lidocaine HCl (Lidocaine 2% (Glydo) 6 Ml Gel) 6 ml TOP NOW ONE Stop: 04/20/25 19:27 Last Admin: 04/20/25 19:30 Dose: 6 ml Documented By: ANJANA Morphine Sulfate (Morphine 4 Mg/Ml Inj) 4 mg IV NOW ONE Stop: 04/20/25 17:15 Last Admin: 04/20/25 17:22 Dose: 4 mg Documented By: SAURABH Potassium Chloride (Potassium Chloride 20 Meq/15 Ml Udc) 40 meq PO NOW ONE Stop: 04/20/25 18:08 Last Admin: 04/20/25 18:42 Dose: 40 meq Documented By: ANDREA Vital Signs Vital signs: Vital Signs - 8 hr 04/20/25 20:30 04/20/25 20:30 Pulse Rate 77 Respiratory Rate 16 Blood Pressure 117/63 Pulse Oximetry 100 MDM - SOB/Dyspnea <Sony Hwang, - Last Filed: 04/20/25 18:21> Lab Data 04/20/25 17:00 04/20/25 20:44 Labs: Lab Results 04/20/25 04/20/25 04/20/25 Range/Units 17:00 18:42 18:50 WBC 9.5 (4.5-11.0) X10^3/uL RBC 4.62 (4.5-5.9) X10^6/uL Hgb 13.4 L (13.5-17.5) g/dL Hct 40.0 L (41-53) % MCV 86.6 (80-100) fL MCH 28.9 (26-34) PG MCHC 33.4 (30-36) % RDW 14.7 (11.6-14.8) % Plt Count 130 L (150-400) X10^3/uL Neut % (Auto) 87.2 H (50-75) % Lymph % (Auto) 5.6 L (25-40) % Sumner % (Auto) 5.7 (3-14) % Eos % (Auto) 0.2 L (2-4) % Baso % (Auto) 1.3 (0-2) % Neut # (Auto) 8300 H (4786-0020) /uL Lymph # (Auto) 500 L (3596-3536) /uL Sumner # (Auto) 500 (0-900) /uL Eos # (Auto) 0 (0-450) /uL Baso # (Auto) 100 (0-100) /uL PT 12.0 (9.4-12.5) SECONDS INR 1.1 (0.9-1.3) VBG pH (7.33-7.43) VBG pCO2 (45-50) mmHg VBG pO2 (35-45) mmHg VBG HCO3 (24-28) mmol/L VBG Total CO2 (24-29) mmol/L VBG O2 Saturation (70-75) % VBG Base Excess (0-4) mmol/L FiO2 % % Sodium 127 L (137-145) mmol/L Potassium 3.5 (3.4-5.1) mmol/L Chloride 97 L (98-107) mmol/L Carbon Dioxide 15 L (22-32) mmol/L BUN 12 (9-20) mg/dL Creatinine 1.38 H (0.66-1.25) mg/dL Estimated GFR 54 L (>60) mL/min BUN/Creatinine Ratio 8.7 (6-22) Glucose 623 H* (70-99) mg/dL POC Whole Bld Glucose > 500 H* (70-99) mg/dL Lactate 5.1 H* 5.3 H* (0.7-2.1) mmol/L Calcium 10.5 H (8.4-10.2) mg/dL Total Bilirubin 0.6 (0.2-1.3) mg/dL AST 41 (17-59) IU/L ALT 60 H (<50) IU/L Alkaline Phosphatase 103 (38-126) U/L Troponin I 0.014 0.014 (0.01-0.034) ng/mL NT-Pro-B Natriuret Pep 829 H (<125) pg/mL Total Protein 6.2 L (6.3-8.2) g/dL Albumin 3.9 (3.5-5.0) g/dL Globulin 2.3 (1.7-4.1) g/dL Albumin/Globulin Ratio 1.7 (1.0-2.8) Urine Color Urine Appearance Urine pH (4.5-8.0) Ur Specific Stringer (1.000-1.035) Urine Protein (Negative) Urine Glucose (UA) (Negative) g/dL Urine Ketones (NEGATIVE) Urine Occult Blood (Negative) Urine Nitrate (Negative) Urine Bilirubin (NEGATIVE) Urine Urobilinogen (0.2) E.U./dL Ur Leukocyte Esterase (NEGATIVE) Urine RBC (0-5/HPF) Urine WBC (0-5/HPF) Ur Squamous Epith Cells (0-5/HPF) Urine Bacteria (None) Vol Urine Centrifuged Ketones 0.74 H (<0.27) mmol/L 04/20/25 04/20/25 04/20/25 Range/Units 19:50 20:28 20:42 WBC (4.5-11.0) X10^3/uL RBC (4.5-5.9) X10^6/uL Hgb (13.5-17.5) g/dL Hct (41-53) % MCV (80-100) fL MCH (26-34) PG MCHC (30-36) % RDW (11.6-14.8) % Plt Count (150-400) X10^3/uL Neut % (Auto) (50-75) % Lymph % (Auto) (25-40) % Sumner % (Auto) (3-14) % Eos % (Auto) (2-4) % Baso % (Auto) (0-2) % Neut # (Auto) (7619-7562) /uL Lymph # (Auto) (1385-0399) /uL Sumner # (Auto) (0-900) /uL Eos # (Auto) (0-450) /uL Baso # (Auto) (0-100) /uL PT (9.4-12.5) SECONDS INR (0.9-1.3) VBG pH 7.32 L (7.33-7.43) VBG pCO2 42.0 L (45-50) mmHg VBG pO2 23 L (35-45) mmHg VBG HCO3 22 L (24-28) mmol/L VBG Total CO2 21 L (24-29) mmol/L VBG O2 Saturation 35 L (70-75) % VBG Base Excess -4.3 L (0-4) mmol/L FiO2 % 21.0 % % Sodium (137-145) mmol/L Potassium (3.4-5.1) mmol/L Chloride (98-107) mmol/L Carbon Dioxide (22-32) mmol/L BUN (9-20) mg/dL Creatinine (0.66-1.25) mg/dL Estimated GFR (>60) mL/min BUN/Creatinine Ratio (6-22) Glucose (70-99) mg/dL POC Whole Bld Glucose 473 H* (70-99) mg/dL Lactate (0.7-2.1) mmol/L Calcium (8.4-10.2) mg/dL Total Bilirubin (0.2-1.3) mg/dL AST (17-59) IU/L ALT (<50) IU/L Alkaline Phosphatase (38-126) U/L Troponin I (0.01-0.034) ng/mL NT-Pro-B Natriuret Pep (<125) pg/mL Total Protein (6.3-8.2) g/dL Albumin (3.5-5.0) g/dL Globulin (1.7-4.1) g/dL Albumin/Globulin Ratio (1.0-2.8) Urine Color Yellow Urine Appearance Clear Urine pH 6.0 (4.5-8.0) Ur Specific Stringer <=1.005 (1.000-1.035) Urine Protein Negative (Negative) Urine Glucose (UA) 3+ H (Negative) g/dL Urine Ketones Negative (NEGATIVE) Urine Occult Blood 3+ H (Negative) Urine Nitrate Negative (Negative) Urine Bilirubin Negative (NEGATIVE) Urine Urobilinogen 0.2 (0.2) E.U./dL Ur Leukocyte Esterase Negative (NEGATIVE) Urine RBC 30-100/hpf H (0-5/HPF) Urine WBC None seen (0-5/HPF) Ur Squamous Epith Cells None seen (0-5/HPF) Urine Bacteria None seen (None) Vol Urine Centrifuged 10ml (spun) Ketones (<0.27) mmol/L 04/20/25 Range/Units 20:44 WBC (4.5-11.0) X10^3/uL RBC (4.5-5.9) X10^6/uL Hgb (13.5-17.5) g/dL Hct (41-53) % MCV (80-100) fL MCH (26-34) PG MCHC (30-36) % RDW (11.6-14.8) % Plt Count (150-400) X10^3/uL Neut % (Auto) (50-75) % Lymph % (Auto) (25-40) % Sumner % (Auto) (3-14) % Eos % (Auto) (2-4) % Baso % (Auto) (0-2) % Neut # (Auto) (6366-1248) /uL Lymph # (Auto) (1729-1559) /uL Sumner # (Auto) (0-900) /uL Eos # (Auto) (0-450) /uL Baso # (Auto) (0-100) /uL PT (9.4-12.5) SECONDS INR (0.9-1.3) VBG pH (7.33-7.43) VBG pCO2 (45-50) mmHg VBG pO2 (35-45) mmHg VBG HCO3 (24-28) mmol/L VBG Total CO2 (24-29) mmol/L VBG O2 Saturation (70-75) % VBG Base Excess (0-4) mmol/L FiO2 % % Sodium 130 L (137-145) mmol/L Potassium 3.9 (3.4-5.1) mmol/L Chloride 100 (98-107) mmol/L Carbon Dioxide 20 L (22-32) mmol/L BUN 13 (9-20) mg/dL Creatinine 1.47 H (0.66-1.25) mg/dL Estimated GFR 50 L (>60) mL/min BUN/Creatinine Ratio 8.8 (6-22) Glucose 425 H D (70-99) mg/dL POC Whole Bld Glucose (70-99) mg/dL Lactate (0.7-2.1) mmol/L Calcium 9.8 (8.4-10.2) mg/dL Total Bilirubin (0.2-1.3) mg/dL AST (17-59) IU/L ALT (<50) IU/L Alkaline Phosphatase (38-126) U/L Troponin I (0.01-0.034) ng/mL NT-Pro-B Natriuret Pep (<125) pg/mL Total Protein (6.3-8.2) g/dL Albumin (3.5-5.0) g/dL Globulin (1.7-4.1) g/dL Albumin/Globulin Ratio (1.0-2.8) Urine Color Urine Appearance Urine pH (4.5-8.0) Ur Specific Stringer (1.000-1.035) Urine Protein (Negative) Urine Glucose (UA) (Negative) g/dL Urine Ketones (NEGATIVE) Urine Occult Blood (Negative) Urine Nitrate (Negative) Urine Bilirubin (NEGATIVE) Urine Urobilinogen (0.2) E.U./dL Ur Leukocyte Esterase (NEGATIVE) Urine RBC (0-5/HPF) Urine WBC (0-5/HPF) Ur Squamous Epith Cells (0-5/HPF) Urine Bacteria (None) Vol Urine Centrifuged Ketones (<0.27) mmol/L Urine Dip Bedside Urine Glucose 1000 mg/dl Bedside Urine Bilirubin - Negative Bedside Urine Ketone - Negative Urine Specific Stringer 1.005 Bedside Urine Occult Blood +++ Bedside Urine pH 6.0 Bedside Urine Protein - Negative Bedside Urine Urobilinogen +/- 1mg Bedside Urine Nitrite - Negative Bedside Urine Leukocytes - Negative Esterase ECG Data Interpretation: Sinus Tach HR 106 SC 158 QRS [address]-t wave change Change from 01/10/23 MDM Narrative Medical decision making narrative: All lab work, vital signs, nurse triage note, medication list, previous ER visits, and all imaging studies reviewed. Chest x-ray showed a small pneumothorax, large hiatal hernia, no consolidative pulmonary edema or pneumonia. WBC 9.5 Hg 13.4 platelet 130 INR 1.1 sodium 127 potassium 3.5 chloride 97 CO2 15 going 12 creatinine 1.38 glucose 623 lactic acid 5.1 calcium 10.5 T bili 0.6 AST 41 ALT 60 phos 103 troponin 0.014 BNP 829 ketones pending. Ultrasound CTA chest and CT abdomen and pelvis pending. Patient signed out to at shift change pending final disposition. <Piyush Ugarte MD - Last Filed: 04/21/25 04:11> Lab Data Attestation: I reviewed the patient's lab results. Lab results narrative: White blood cell count 9500, hemoglobin 13.4, platelets adequate. Glucose 623. BUN 12 with creatinine 1.38, serum CO2 15 decreased, sodium 127, potassium 3.5, chloride 97, anion gap 15. Serum ketones 0.74 mildly elevated. Initial lactate 5.1, repeat 5.3 elevated. Blood cultures pending. BNP 829 mildly elevated. Troponin 0.014 measurable but low, repeat level unchanged. Labs: Lab Results 04/20/25 04/20/25 04/20/25 Range/Units 17:00 18:42 18:50 WBC 9.5 (4.5-11.0) X10^3/uL RBC 4.62 (4.5-5.9) X10^6/uL Hgb 13.4 L (13.5-17.5) g/dL Hct 40.0 L (41-53) % MCV 86.6 (80-100) fL MCH 28.9 (26-34) PG MCHC 33.4 (30-36) % RDW 14.7 (11.6-14.8) % Plt Count 130 L (150-400) X10^3/uL Neut % (Auto) 87.2 H (50-75) % Lymph % (Auto) 5.6 L (25-40) % Sumner % (Auto) 5.7 (3-14) % Eos % (Auto) 0.2 L (2-4) % Baso % (Auto) 1.3 (0-2) % Neut # (Auto) 8300 H (3629-5894) /uL Lymph # (Auto) 500 L (2614-6867) /uL Sumner # (Auto) 500 (0-900) /uL Eos # (Auto) 0 (0-450) /uL Baso # (Auto) 100 (0-100) /uL PT 12.0 (9.4-12.5) SECONDS INR 1.1 (0.9-1.3) VBG pH (7.33-7.43) VBG pCO2 (45-50) mmHg VBG pO2 (35-45) mmHg VBG HCO3 (24-28) mmol/L VBG Total CO2 (24-29) mmol/L VBG O2 Saturation (70-75) % VBG Base Excess (0-4) mmol/L FiO2 % % Sodium 127 L (137-145) mmol/L Potassium 3.5 (3.4-5.1) mmol/L Chloride 97 L (98-107) mmol/L Carbon Dioxide 15 L (22-32) mmol/L BUN 12 (9-20) mg/dL Creatinine 1.38 H (0.66-1.25) mg/dL Estimated GFR 54 L (>60) mL/min BUN/Creatinine Ratio 8.7 (6-22) Glucose 623 H* (70-99) mg/dL POC Whole Bld Glucose > 500 H* (70-99) mg/dL Lactate 5.1 H* 5.3 H* (0.7-2.1) mmol/L Calcium 10.5 H (8.4-10.2) mg/dL Total Bilirubin 0.6 (0.2-1.3) mg/dL AST 41 (17-59) IU/L ALT 60 H (<50) IU/L Alkaline Phosphatase 103 (38-126) U/L Troponin I 0.014 0.014 (0.01-0.034) ng/mL NT-Pro-B Natriuret Pep 829 H (<125) pg/mL Total Protein 6.2 L (6.3-8.2) g/dL Albumin 3.9 (3.5-5.0) g/dL Globulin 2.3 (1.7-4.1) g/dL Albumin/Globulin Ratio 1.7 (1.0-2.8) Urine Color Urine Appearance Urine pH (4.5-8.0) Ur Specific Stringer (1.000-1.035) Urine Protein (Negative) Urine Glucose (UA) (Negative) g/dL Urine Ketones (NEGATIVE) Urine Occult Blood (Negative) Urine Nitrate (Negative) Urine Bilirubin (NEGATIVE) Urine Urobilinogen (0.2) E.U./dL Ur Leukocyte Esterase (NEGATIVE) Urine RBC (0-5/HPF) Urine WBC (0-5/HPF) Ur Squamous Epith Cells (0-5/HPF) Urine Bacteria (None) Vol Urine Centrifuged Ketones 0.74 H (<0.27) mmol/L 04/20/25 04/20/25 04/20/25 Range/Units 19:50 20:28 20:42 WBC (4.5-11.0) X10^3/uL RBC (4.5-5.9) X10^6/uL Hgb (13.5-17.5) g/dL Hct (41-53) % MCV (80-100) fL MCH (26-34) PG MCHC (30-36) % RDW (11.6-14.8) % Plt Count (150-400) X10^3/uL Neut % (Auto) (50-75) % Lymph % (Auto) (25-40) % Sumner % (Auto) (3-14) % Eos % (Auto) (2-4) % Baso % (Auto) (0-2) % Neut # (Auto) (3867-0682) /uL Lymph # (Auto) (9976-2285) /uL Sumner # (Auto) (0-900) /uL Eos # (Auto) (0-450) /uL Baso # (Auto) (0-100) /uL PT (9.4-12.5) SECONDS INR (0.9-1.3) VBG pH 7.32 L (7.33-7.43) VBG pCO2 42.0 L (45-50) mmHg VBG pO2 23 L (35-45) mmHg VBG HCO3 22 L (24-28) mmol/L VBG Total CO2 21 L (24-29) mmol/L VBG O2 Saturation 35 L (70-75) % VBG Base Excess -4.3 L (0-4) mmol/L FiO2 % 21.0 % % Sodium (137-145) mmol/L Potassium (3.4-5.1) mmol/L Chloride (98-107) mmol/L Carbon Dioxide (22-32) mmol/L BUN (9-20) mg/dL Creatinine (0.66-1.25) mg/dL Estimated GFR (>60) mL/min BUN/Creatinine Ratio (6-22) Glucose (70-99) mg/dL POC Whole Bld Glucose 473 H* (70-99) mg/dL Lactate (0.7-2.1) mmol/L Calcium (8.4-10.2) mg/dL Total Bilirubin (0.2-1.3) mg/dL AST (17-59) IU/L ALT (<50) IU/L Alkaline Phosphatase (38-126) U/L Troponin I (0.01-0.034) ng/mL NT-Pro-B Natriuret Pep (<125) pg/mL Total Protein (6.3-8.2) g/dL Albumin (3.5-5.0) g/dL Globulin (1.7-4.1) g/dL Albumin/Globulin Ratio (1.0-2.8) Urine Color Yellow Urine Appearance Clear Urine pH 6.0 (4.5-8.0) Ur Specific Stringer <=1.005 (1.000-1.035) Urine Protein Negative (Negative) Urine Glucose (UA) 3+ H (Negative) g/dL Urine Ketones Negative (NEGATIVE) Urine Occult Blood 3+ H (Negative) Urine Nitrate Negative (Negative) Urine Bilirubin Negative (NEGATIVE) Urine Urobilinogen 0.2 (0.2) E.U./dL Ur Leukocyte Esterase Negative (NEGATIVE) Urine RBC 30-100/hpf H (0-5/HPF) Urine WBC None seen (0-5/HPF) Ur Squamous Epith Cells None seen (0-5/HPF) Urine Bacteria None seen (None) Vol Urine Centrifuged 10ml (spun) Ketones (<0.27) mmol/L 04/20/25 Range/Units 20:44 WBC (4.5-11.0) X10^3/uL RBC (4.5-5.9) X10^6/uL Hgb (13.5-17.5) g/dL Hct (41-53) % MCV (80-100) fL MCH (26-34) PG MCHC (30-36) % RDW (11.6-14.8) % Plt Count (150-400) X10^3/uL Neut % (Auto) (50-75) % Lymph % (Auto) (25-40) % Sumner % (Auto) (3-14) % Eos % (Auto) (2-4) % Baso % (Auto) (0-2) % Neut # (Auto) (9884-7483) /uL Lymph # (Auto) (9436-3565) /uL Sumner # (Auto) (0-900) /uL Eos # (Auto) (0-450) /uL Baso # (Auto) (0-100) /uL PT (9.4-12.5) SECONDS INR (0.9-1.3) VBG pH (7.33-7.43) VBG pCO2 (45-50) mmHg VBG pO2 (35-45) mmHg VBG HCO3 (24-28) mmol/L VBG Total CO2 (24-29) mmol/L VBG O2 Saturation (70-75) % VBG Base Excess (0-4) mmol/L FiO2 % % Sodium 130 L (137-145) mmol/L Potassium 3.9 (3.4-5.1) mmol/L Chloride 100 (98-107) mmol/L Carbon Dioxide 20 L (22-32) mmol/L BUN 13 (9-20) mg/dL Creatinine 1.47 H (0.66-1.25) mg/dL Estimated GFR 50 L (>60) mL/min BUN/Creatinine Ratio 8.8 (6-22) Glucose 425 H D (70-99) mg/dL POC Whole Bld Glucose (70-99) mg/dL Lactate (0.7-2.1) mmol/L Calcium 9.8 (8.4-10.2) mg/dL Total Bilirubin (0.2-1.3) mg/dL AST (17-59) IU/L ALT (<50) IU/L Alkaline Phosphatase (38-126) U/L Troponin I (0.01-0.034) ng/mL NT-Pro-B Natriuret Pep (<125) pg/mL Total Protein (6.3-8.2) g/dL Albumin (3.5-5.0) g/dL Globulin (1.7-4.1) g/dL Albumin/Globulin Ratio (1.0-2.8) Urine Color Urine Appearance Urine pH (4.5-8.0) Ur Specific Stringer (1.000-1.035) Urine Protein (Negative) Urine Glucose (UA) (Negative) g/dL Urine Ketones (NEGATIVE) Urine Occult Blood (Negative) Urine Nitrate (Negative) Urine Bilirubin (NEGATIVE) Urine Urobilinogen (0.2) E.U./dL Ur Leukocyte Esterase (NEGATIVE) Urine RBC (0-5/HPF) Urine WBC (0-5/HPF) Ur Squamous Epith Cells (0-5/HPF) Urine Bacteria (None) Vol Urine Centrifuged Ketones (<0.27) mmol/L Urine Dip Bedside Urine Glucose 1000 mg/dl Bedside Urine Bilirubin - Negative Bedside Urine Ketone - Negative Urine Specific Stringer 1.005 Bedside Urine Occult Blood +++ Bedside Urine pH 6.0 Bedside Urine Protein - Negative Bedside Urine Urobilinogen +/- 1mg Bedside Urine Nitrite - Negative Bedside Urine Leukocytes - Negative Esterase Imaging Data Ultrasound lower extremity venous Doppler: Radiologist's Impression: [address] [address] Ultrasound Report Signed Patient: Luis Givens MR#: [id number] : 1950 Acct:[id number] Age/Sex: 74 / M Date of Service: 04/20/25 Loc: ED Accession Number: [id number] Procedure: US perip venous low extrem lt Ordering Provider: Sony Hwang D.O. PROCEDURE: US PERIP VENOUS LOW EXTREM LT INDICATIONS: chest pain sob TECHNIQUE: Real-time imaging, as well as color and pulse Doppler interrogation, were performed of the lower extremity deep veins from the inguinal ligament to the popliteal fossa, with documentation of the visualized calf veins. COMPARISON: None. FINDINGS: The common femoral, femoral, popliteal, and the visualized calf veins are normally compressible, and free of intraluminal thrombus. Color and pulse Doppler demonstrate normal phasic intraluminal flow. There is normal augmentation response to distal compression maneuver. IMPRESSION: Negative left lower extremity duplex venous ultrasound for DVT. Dictated by: Price Orozco M.D. on 04/20/2025 at 18:24 Approved by: Price Orozco M.D. on 04/20/2025 at 18:25 Chest x-ray: Radiologist's Impression: [address] [address] XRay Report Signed Patient: Luis Givens MR#: [id number] : 1950 Acct:[id number] Age/Sex: 74 / M Date of Service: 04/20/25 Loc: ED Accession Number: [id number] Procedure: XR chest 1V Ordering Provider: Sony Hwang D.O. PROCEDURE: XR CHEST 1V INDICATIONS: Shortness of breath TECHNIQUE: One view of the chest was acquired. COMPARISON: [facility], CR, XR CHEST 1V, 01/10/2023, 10:07. [facility], CR, XR CHEST 1V, 12/29/2018, 16:32. FINDINGS: Surgical changes and devices: None. Lungs and pleura: Right infrahilar atelectasis. Right small pneumothorax seen on the right lateral pleural margin.. Mediastinum: Large hiatal hernia. Bones and chest wall: No suspicious bony lesions. Overlying soft tissues appear unremarkable. IMPRESSION: 1. Right sided pneumothorax. 2. Large hiatal hernia. 3. No consolidative pneumonia or pulmonary edema. Communication: The above findings of right lateral pneumothorax were discussed with Dr. Hwang of the ER by Dr. Ring on 04/20/2025 at 5:03 p.m. Griffin standard time. Dictated by: Kale Ring M.D. on 04/20/2025 at 17:00 Approved by: Kale Ring M.D. on 04/20/2025 at 17:03 CTA chest: Radiologist's Impression: [place] [address] CT Scan Report Signed Patient: Luis Givens MR#: [id number] : 1950 Acct:[id number] Age/Sex: 74 / M Date of Service: 04/20/25 Loc: ED Accession Number: [id number] Procedure: CT angio chest PE protocol Ordering Provider: Sony Hwang D.O. PROCEDURE: CT ANGIO CHEST PE PROTOCOL INDICATIONS: chest pain sob TECHNIQUE: After the administration of intravenous contrast, 2 mm thick sections acquired from the pulmonary apices to the posterior costophrenic angles. 3-dimensional maximum intensity projection (MIP) coronal and sagittal reformats were then acquired through the thorax. For radiation dose reduction, the following was used: automated exposure control, adjustment of mA and/or kV according to patient size. COMPARISON: [facility], CT, CT ABDOMEN PELVIS W CON, 04/20/2025, 17:54. FINDINGS: Image quality: Diagnostic. Pulmonary arteries: Pulmonary arteries are normal in size, and demonstrate no intraluminal filling defects to suggest central pulmonary embolism. Lower Neck: No enlarged lymph nodes. Thyroid: No thyroid nodules which require sonographic follow up, per consensus guidelines. Axillae: No enlarged lymph nodes. Chest Wall: Unremarkable. Bones: Unremarkable. Lungs and Pleura: No pneumothorax or pleural effusions. No consolidation or suspicious nodules. Heart: Heart size is normal. Advanced coronary artery calcifications. Question coronary artery stents. No pericardial effusion. Thoracic Vessels: No aortic aneurysm. Mediastinum and Jenny: No enlarged lymph nodes. Esophagus: No wall thickening. Large hiatal hernia with organoaxial volvulus. This type of IV less typically does not result in acute symptomatology. Upper Abdomen: Please refer to a separate report for findings in the abdomen and pelvis. IMPRESSION: No pulmonary embolus. No acute cardiopulmonary process. Large hiatal hernia with organo-axial volvulus. Comment: Please refer to separate report for significant findings in the abdomen and pelvis. Dictated by: Price Orozco M.D. on 04/20/2025 at 18:25 Approved by: Price Orozco M.D. on 04/20/2025 at 18:30 CT abdomen and pelvis: Radiologist's Impression: [place] [address] CT Scan Report Signed Patient: Luis Givens MR#: [id number] : 1950 Acct:[id number] Age/Sex: 74 / M Date of Service: 04/20/25 Loc: ED Accession Number: [id number] Procedure: CT abdomen pelvis w con Ordering Provider: Sony Hwang D.O. PROCEDURE: CT ABDOMEN PELVIS W CON INDICATIONS: abd pain TECHNIQUE: After the administration of intravenous contrast, axial sections acquired from the lung bases to the pubic symphysis. Coronal and sagittal reformats were performed. For radiation dose reduction, the following was used: automated exposure control, adjustment of mA and/or kV according to patient size. COMPARISON: [facility], CT, CT CHEST ABD PEL W CON, 01/10/2023, 11:39. FINDINGS: Image quality: Diagnostic. Lower Chest: Severe coronary artery calcifications and probable stents. Large hiatal hernia with organoaxial volvulus. ABDOMEN: Liver: No solid mass. Gallbladder: No radiopaque gallstones or wall thickening. Biliary ducts: No biliary dilation. Pancreas: No ductal dilation. Spleen: Size is within normal limits. Adrenal Glands: No adrenal nodules. Kidneys and Ureters: There are bilateral delayed nephrograms and there is moderate bilateral hydronephrosis. There is a least moderate hydroureter down to the level of the base of the bladder. The bladder is markedly distended. It contains a large stone. There are bilateral nonobstructing renal stones, right greater than left. Stomach and Bowel: Normal colonic caliber, without significant wall thickening. Large fecal load. Peritoneum: No abnormal intraperitoneal fluid. No free air. Ventral Wall: No significant ventral hernia. Abdominal Nodes: No retroperitoneal or mesenteric adenopathy by size criteria. Vessels: Aorta and inferior vena cava are normal in size. PELVIS: Pelvic Organs: Severe prostatomegaly Bladder: Marked dilatation of the urinary bladder. A large stone in the bladder is consistent with urine stasis. Pelvic Nodes: No enlarged lymph nodes. Miscellaneous: Small fat containing right inguinal hernia. Incidental note made of the presence of bilateral hydroceles in the scrotum. Bones: No aggressive osseous abnormality. IMPRESSION: Severe prostatomegaly with bladder outlet obstruction resulting in marked dilatation of the urinary bladder and moderate bilateral hydronephrosis and hydroureter with delayed bilateral nephrograms. There is a large bladder stone consistent with urine stasis. There are bilateral nonobstructing renal stones, right greater than left. Chronic large hiatal hernia with chronic organo-axial gastric volvulus. Large fecal load. Comment: Recommend Ott placement and considering reimaging in 2-3 days to demonstrate improvement in hydronephrosis. Dictated by: Price Orozco M.D. on 04/20/2025 at 18:31 Approved by: Price Orozco M.D. on 04/20/2025 at 18:38 MDM Narrative Medical decision making narrative: All lab work, vital signs, nurse triage note, medication list, previous ER visits, and all imaging studies reviewed. Chest x-ray showed a small pneumothorax, large hiatal hernia, no consolidative pulmonary edema or pneumonia. WBC 9.5 Hg 13.4 platelet 130 INR 1.1 sodium 127 potassium 3.5 chloride 97 CO2 15 going 12 creatinine 1.38 glucose 623 lactic acid 5.1 calcium 10.5 T bili 0.6 AST 41 ALT 60 phos 103 troponin 0.014 BNP 829 ketones pending. Ultrasound CTA chest and CT abdomen and pelvis pending. Patient signed out to at shift change pending final disposition. 04/20/25, Torito [place]. Sign-out from Dr. Hwang. 74-year-old male complains of lower extremity edema for 2 weeks, unable to empty his bladder, scrotal pain, difficulty moving his bowels. Screening labs showed elevated lactate, elevated glucose, increased anion gap, IV fluid gentle bolus, BNP 800s moderately elevated, careful with IV fluids. Blood culture sent. IV ceftriaxone empirically started, urine culture requested. Ott catheter to be placed. IV insulin initiated for suspected DKA. ABG pending. Concern for [id number]-right leg swelling, ultrasound Doppler left lower extremity venous study ordered. CTA chest, CT abdomen and pelvis studies ordered. Assumed care. Chest x-ray. Impressions: ?1. Right sided pneumothorax. 2. Large hiatal hernia.3. No consolidative pneumonia or pulmonary edema. See radiology report. Lab data: White blood cell count 9500, hemoglobin 13.4, platelets adequate. Glucose 623. BUN 12 with creatinine 1.38, serum CO2 15 decreased, sodium 127, potassium 3.5, chloride 97, anion gap 15. Serum ketones 0.74 mildly elevated. Initial lactate 5.1, repeat 5.3 elevated. Blood cultures pending. BNP 829 mildly elevated. Troponin 0.014 measurable but low, repeat level unchanged. Ultrasound left lower extremity. No evidence for DVT. See radiology report. CTA chest. Impressions: ?No pulmonary embolus. No acute cardiopulmonary process. Large hiatal hernia with organo-axial volvulus. See radiology report. There was no mention of any pneumothorax on CTA Chest report. CT abdomen and pelvis. Impressions: ?Severe prostatomegaly with bladder outlet obstruction resulting in marked dilatation of the urinary bladder and moderate bilateral hydronephrosis and hydroureter with delayed bilateral nephrograms. There is a large bladder stone consistent with urine stasis. There are bilateral nonobstructing renal stones, right greater than left. Chronic large hiatal hernia with chronic organo-axial gastric volvulus. Large fecal load. Comment: Recommend Ott placement and considering reimaging in 2-3 days to demonstrate improvement in hydronephrosis. See radiology report. exam by me, transurethral Ott is in place, no obvious crepitance or tenderness to the scrotum or perineal region, nonbloody urine in Ott collection bag. Urinalysis showed ketones and glucose and blood, not obviously infected, though urine culture requested. Blood cultures requested prior. IV ceftriaxone given empirically prior. Unclear source infection. We will broaden antibiotic coverage with IV Vancomycin and IV Zosyn. Consider more aggressive IV fluids, however BNP was 800s mildly elevated, with bilateral lower extremity edema, we will defer further fluid resuscitation to inpatient team. VBG pH 7.32 mild acidemia. Most recent glucose 473. Will add insulin infusion, 10 unit bolus given by previous provider. IV/oral potassium given for initial level K=3.5. Admit to ICU with DKA, severe sepsis unclear source (lactate >4), L>R lower extremity edema, CHF. PCP at [facility] base. Hospitalist paged. [phone], case discussed with hospitalist Dr. Toure who accepts patient for admission to inpatient Critical Care Time <Piyush Ugarte MD - Last Filed: 04/21/25 04:11> Critical Care Time Critical Care Time: Yes Total Critical Care Time: 35 Attestation: The high probability of a clinically significant, sudden or life threatening deterioration of the [cardiopulmonary] system(s) required my full and direct attention, intervention and personal management. The aggregate critical care time was [35] minutes. This time is in addition to time spent performing reported procedures but includes the following: [x] Data Review and interpretation [x] Patient assessment and monitoring of vital signs [x] Documentation [x] Medication orders and management Discharge Plan Departure Patient Disposition: Admitted As Inpatient Clinical Impression: Diabetic ketoacidosis, Edema of both lower extremities, Enlarged prostate, Hydronephrosis due to obstruction of bladder, Severe sepsis Admit Date/Time: 04/20/25 20:53 Admit Provider: Bin Clement
[2025-04-20 17:13] LABS: INR 1.1 (0.9-1.3); Prothrombin Time 12.0 SECONDS (9.4-12.5)
[2025-04-20 17:16] LABS: Add Manual Diff / Slide Review NO; Hematocrit 40.0 % (41-53); Hemoglobin 13.4 g/dL (13.5-17.5); Lymphocytes Absolute Auto 500 /uL (1100-4500); Mean Corpuscular HGB Conc 33.4 % (30-36); Mean Corpuscular Hemoglobin 28.9 PG (26-34); Mean Corpuscular Volume 86.6 fL (80-100); Platelet Count 130 X10^3/uL (150-400)
[2025-04-20 17:19] LABS: Alanine Aminotransferase 60 IU/L (<50); Albumin 3.9 g/dL (3.5-5.0); Albumin Globulin Ratio 1.7 (1.0-2.8); Alkaline Phosphatase 103 U/L (38-126); Blood Urea Nitrogen 12 mg/dL (9-20); Calcium 10.5 mg/dL (8.4-10.2); Carbon Dioxide 15 mmol/L (22-32); Chloride 97 mmol/L (98-107); Estimated Glomerular Filt Rate 54 mL/min (>60); Globulin 2.3 g/dL (1.7-4.1); HEMOLYSIS < 15 (0-50); Potassium 3.5 mmol/L (3.4-5.1); Sodium 127 mmol/L (137-145); Total Protein 6.2 g/dL (6.3-8.2)
[2025-04-20] MEDS: MORPHINE 4 MG/ML INJ IV (17:22)
--- NOTE | 2025-04-20 17:22 | DI.US.S_ITS ---
PROCEDURE: US PERIPH VENOUS LOW EXTREM LT INDICATIONS: chest pain sob TECHNIQUE: Real-time imaging, as well as color and pulse Doppler interrogation, were performed of the lower extremity deep veins from the inguinal ligament to the popliteal fossa, with documentation of the visualized calf veins. COMPARISON: None. FINDINGS: The common femoral, femoral, popliteal, and the visualized calf veins are normally compressible, and free of intraluminal thrombus. Color and pulse Doppler demonstrate normal phasic intraluminal flow. There is normal augmentation response to distal compression maneuver. IMPRESSION: Negative left lower extremity duplex venous ultrasound for DVT. Dictated by: Price Orozco M.D. on 04/20/2025 at 18:24 Approved by: Price Orozco M.D. on 04/20/2025 at 18:25
--- NOTE | 2025-04-20 17:22 | DI.CT.S_ITS ---
PROCEDURE: CT ANGIO CHEST PE PROTOCOL INDICATIONS: chest pain sob TECHNIQUE: After the administration of intravenous contrast, 2 mm thick sections acquired from the pulmonary apices to the posterior costophrenic angles. 3-dimensional maximum intensity projection (MIP) coronal and sagittal reformats were then acquired through the thorax. For radiation dose reduction, the following was used: automated exposure control, adjustment of mA and/or kV according to patient size. COMPARISON: [facility], CT, CT ABDOMEN PELVIS W CON, 04/20/2025, 17:54. FINDINGS: Image quality: Diagnostic. Pulmonary arteries: Pulmonary arteries are normal in size, and demonstrate no intraluminal filling defects to suggest central pulmonary embolism. Lower Neck: No enlarged lymph nodes. Thyroid: No thyroid nodules which require sonographic follow up, per consensus guidelines. Axillae: No enlarged lymph nodes. Chest Wall: Unremarkable. Bones: Unremarkable. Lungs and Pleura: No pneumothorax or pleural effusions. No consolidation or suspicious nodules. Heart: Heart size is normal. Advanced coronary artery calcifications. Question coronary artery stents. No pericardial effusion. Thoracic Vessels: No aortic aneurysm. Mediastinum and Jenny: No enlarged lymph nodes. Esophagus: No wall thickening. Large hiatal hernia with organoaxial volvulus. This type of IV less typically does not result in acute symptomatology. Upper Abdomen: Please refer to a separate report for findings in the abdomen and pelvis. IMPRESSION: No pulmonary embolus. No acute cardiopulmonary process. Large hiatal hernia with organo-axial volvulus. Comment: Please refer to separate report for significant findings in the abdomen and pelvis. Dictated by: Price Orozco M.D. on 04/20/2025 at 18:25 Approved by: Price Orozco M.D. on 04/20/2025 at 18:30
[2025-04-20 17:30] LABS: Glucose 623 mg/dL (70-99); Lactate (Lactic Acid) 5.1 mmol/L (0.7-2.1)
[2025-04-20 17:31] LABS: NT-proBNP (BNP-Adult 18+) 829 pg/mL (<125); Troponin I 0.014 ng/mL (0.01-0.034)
[2025-04-20] MEDS: INSULIN REGULAR 100 UNIT/ML 3 ML VIAL 10 UNIT IV (17:46)
--- NOTE | 2025-04-20 17:47 | DI.CT.S_ITS ---
PROCEDURE: CT ABDOMEN PELVIS W CON INDICATIONS: abd pain TECHNIQUE: After the administration of intravenous contrast, axial sections acquired from the lung bases to the pubic symphysis. Coronal and sagittal reformats were performed. For radiation dose reduction, the following was used: automated exposure control, adjustment of mA and/or kV according to patient size. COMPARISON: [facility], CT, CT CHEST ABD PEL W CON, 01/10/2023, 11:39. FINDINGS: Image quality: Diagnostic. Lower Chest: Severe coronary artery calcifications and probable stents. Large hiatal hernia with organoaxial volvulus. ABDOMEN: Liver: No solid mass. Gallbladder: No radiopaque gallstones or wall thickening. Biliary ducts: No biliary dilation. Pancreas: No ductal dilation. Spleen: Size is within normal limits. Adrenal Glands: No adrenal nodules. Kidneys and Ureters: There are bilateral delayed nephrograms and there is moderate bilateral hydronephrosis. There is a least moderate hydroureter down to the level of the base of the bladder. The bladder is markedly distended. It contains a large stone. There are bilateral nonobstructing renal stones, right greater than left. Stomach and Bowel: Normal colonic caliber, without significant wall thickening. Large fecal load. Peritoneum: No abnormal intraperitoneal fluid. No free air. Ventral Wall: No significant ventral hernia. Abdominal Nodes: No retroperitoneal or mesenteric adenopathy by size criteria. Vessels: Aorta and inferior vena cava are normal in size. PELVIS: Pelvic Organs: Severe prostatomegaly Bladder: Marked dilatation of the urinary bladder. A large stone in the bladder is consistent with urine stasis. Pelvic Nodes: No enlarged lymph nodes. Miscellaneous: Small fat containing right inguinal hernia. Incidental note made of the presence of bilateral hydroceles in the scrotum. Bones: No aggressive osseous abnormality. IMPRESSION: Severe prostatomegaly with bladder outlet obstruction resulting in marked dilatation of the urinary bladder and moderate bilateral hydronephrosis and hydroureter with delayed bilateral nephrograms. There is a large bladder stone consistent with urine stasis. There are bilateral nonobstructing renal stones, right greater than left. Chronic large hiatal hernia with chronic organo-axial gastric volvulus. Large fecal load. Comment: Recommend Ott placement and considering reimaging in 2-3 days to demonstrate improvement in hydronephrosis. Dictated by: Price Orozco M.D. on 04/20/2025 at 18:31 Approved by: Price Orozco M.D. on 04/20/2025 at 18:38
[2025-04-20 17:59] LABS: Ketones (Beta-Hydroxybutyrate) 0.74 mmol/L (<0.27)
[2025-04-20] MEDS: SODIUM CHLORIDE 0.9% 1,000 ML 1000 ML IV (18:35)
[2025-04-20] MEDS: POTASSIUM CHLORIDE IN WATER 10 MEQ/100 ML PIGGYBACK 100 MEQ IV ×2 (18:35→20:01)
[2025-04-20 18:38] LABS: Reflexed Lactate in 2 Hours Y
[2025-04-20] MEDS: POTASSIUM CHLORIDE 20 MEQ/15 ML UDC 40 MEQ PO (18:42)
[2025-04-20 19:18] LABS: Lactate 2HR (Lactic Acid Rflx) 5.3 mmol/L (0.7-2.1)
[2025-04-20 19:24] LABS: Troponin I 0.014 ng/mL (0.01-0.034)
[2025-04-20] MEDS: LIDOCAINE 2% (GLYDO) 6 ML GEL TOP (19:30)
[2025-04-20 19:59] LABS: Appearance Urine UA CLEAR; Bilirubin Urine UA NEGATIVE (NEGATIVE); Color Urine UA YELLOW; Glucose Urine UA 3+ g/dL (Negative); Ketones Urine UA NEGATIVE (NEGATIVE); Leukocyte Esterase Urine UA NEGATIVE (NEGATIVE); Nitrite Urine UA NEGATIVE (Negative); Occult Blood Urine UA 3+ (Negative); Protein Urine UA NEGATIVE (Negative); Specific Gravity Urine UA <=1.005 (1.000-1.035); Urobilinogen Urine UA 0.2 E.U./dL (0.2); pH Urine UA 6.0 (4.5-8.0)
--- NOTE | 2025-04-20 20:13 | PC.NURSE ---
Pt reports massive LE edema, L > R. 3+ pitting edema noted to hip level. Extremities warm and tender to touch. Plan of care reviewed with pt and roommate, they verbalized understanding.
[2025-04-20 20:45] LABS: Base Excess VBG -4.3 mmol/L (0-4); HCO3 VBG 22 mmol/L (24-28); Oxygen Saturation VBG 35 % (70-75); PCO2 VBG 42.0 mmHg (45-50); PO2 VBG 23 mmHg (35-45); Total CO2 VBG 21 mmol/L (24-29); pH VBG 7.32 (7.33-7.43)
[2025-04-20] MEDS: PIPERACILLIN/TAZO 4.5 GM in SODIUM CHLORIDE 0.9% 100 ML IV (20:56)
[2025-04-20 21:01] LABS: Blood Urea Nitrogen 13 mg/dL (9-20); Calcium 9.8 mg/dL (8.4-10.2); Carbon Dioxide 20 mmol/L (22-32); Chloride 100 mmol/L (98-107); Estimated Glomerular Filt Rate 50 mL/min (>60); Glucose 425 mg/dL (70-99); HEMOLYSIS < 15 (0-50); Potassium 3.9 mmol/L (3.4-5.1); Sodium 130 mmol/L (137-145)
[2025-04-20] MEDS: INSULIN DRIP PREMIX 100 UNIT/100 ML PLAST..BAG IV (21:24)
[2025-04-20 23:10] LABS: MRSA (Nasal) PCR NOT DETECTED (Not Detect)
[2025-04-21] VITALS (28 sets, daily range): BP systolic 98–153; BP diastolic 52–82; PULSE 50–81; RESP 8–21; TEMP 36.3–36.4; O2SAT 93–100
[2025-04-21] MEDS: VANCOMYCIN 2,000 MG/400 ML PIGGYBACK 200 MG IV (01:02)
[2025-04-21] MEDS: DEXTROSE 10 % IN WATER 100 ML 1200 ML IV ×2 (03:27→08:31)
[2025-04-21] MEDS: DEXTROSE 5%-0.45% NS 1,000 ML 150 ML IV ×2 (03:59→12:00)
--- NOTE | 2025-04-21 04:11 | PM.HP.1 ---
History of Present Illness History of Present Illness Date Patient Seen: 04/20/25 Time Patient Seen: 22:00 Chief complaint: can't pee, swollen legs Narrative: 74 y/o with PMH of NIDDM, HTN, HLD, presented with bilateral leg swelling, difficulty urinating and exertional dyspnea that has been ongoing for the past few weeks and gradually worsening. ED workup showing enlarged prostate, bladder and b/l renal stones, hydronephrosis, UTI and DKA. He does not take anything for enlarged prostate, was not aware of stones and never had DKA before. [facility] Surgical History H/O: knee surgery History of inguinal hernia repair Family History Brother Hypertension Hyperlipidemia Social History household members: none Smoking Status: Current some day smoker Smokeless tobacco user: other alcohol intake: current substance use type: does not use Meds Home Medications and Allergies Home Medications ?Medication ?Instructions ?Recorded ?Confirmed ?Type aspirin 81 mg tablet,delayed 81 mg PO DAILY 12/29/18 04/20/25 History release (Ira Low Dose Aspirin) empagliflozin 25 mg tablet 25 mg PO DAILY 04/20/25 04/20/25 History (Jardiance) losartan 25 mg tablet 25 mg PO DAILY 04/20/25 04/20/25 History metoprolol succinate 25 mg 25 mg PO DAILY 04/20/25 04/20/25 History tablet,extended release 24 hr rosuvastatin 40 mg tablet 40 mg PO DAILY 04/20/25 04/20/25 History Allergies Allergy/AdvReac Type Severity Reaction Status Date / Time No Known Drug Allergies Allergy Verified 12/29/18 18:02 Review of Systems Review of Systems Narrative: General - fatigued, w/o chills or fever UG - hard to urinate CVS - w/o chest pain or palpitations, swollen legs RS - exertional dyspnea GI - w/o abdominal pain, nauseated Exam Vital Signs (past 8 hours): - 04/20/25 20:30 04/20/25 20:30 04/20/25 21:00 Temperature Pulse Rate 77 63 Respiratory Rate 16 Blood Pressure 117/63 Pulse Oximetry 100 100 Oxygen Delivery Method Oxygen Flow Rate 04/20/25 21:00 04/20/25 21:23 04/20/25 21:30 Temperature Pulse Rate 64 Respiratory Rate 12 Blood Pressure 118/63 Pulse Oximetry 99 Oxygen Delivery Method Room Air Oxygen Flow Rate 04/20/25 21:30 04/20/25 21:37 04/20/25 21:40 Temperature Pulse Rate 72 Respiratory Rate 15 Blood Pressure 108/56 L 123/65 Pulse Oximetry 99 Oxygen Delivery Method Oxygen Flow Rate 04/20/25 21:53 04/20/25 21:53 04/20/25 21:58 Temperature 97.3 F L Pulse Rate 67 Respiratory Rate 17 Blood Pressure 130/71 Pulse Oximetry 100 Oxygen Delivery Method Oxygen Flow Rate 04/20/25 23:27 04/21/25 00:00 04/21/25 01:00 Temperature Pulse Rate 62 65 60 Respiratory Rate 18 18 18 Blood Pressure 131/69 123/61 117/57 L Pulse Oximetry 100 100 99 Oxygen Delivery Method Oxygen Flow Rate 04/21/25 02:00 04/21/25 03:00 Temperature Pulse Rate 60 81 Respiratory Rate 18 18 Blood Pressure 113/64 109/58 L Pulse Oximetry 99 97 Oxygen Delivery Method Oxygen Flow Rate 0 Oxygen Delivery Method Room Air Oxygen Flow Rate 0 Narrative Exam Narrative: General - in no distress HEENT - PER, EOMI, supple neck CVS - RRR RS - CTA GI - not distended or tender Neuro - w/o deficits, lucid Objective Imaging CT scan - abdomen: Radiologist's impression: Severe prostatomegaly with bladder outlet obstruction resulting in marked dilatation of the urinary bladder and moderate bilateral hydronephrosis and hydroureter with delayed bilateral nephrograms. There is a large bladder stone consistent with urine stasis. There are bilateral nonobstructing renal stones, right greater than left. Chronic large hiatal hernia with chronic organo-axial gastric volvulus. Large fecal load. CTA Chest: Radiologist's impression: Hiatal hernia, Rt infrahilar atelectasis No PE No pneumothorax Labs 04/21/25 04:10 04/21/25 04:10 Labs: Laboratory Results - last 24 hr 04/20/25 04/20/25 04/20/25 17:00 18:42 18:50 WBC 9.5 RBC 4.62 Hgb 13.4 L Hct 40.0 L MCV 86.6 MCH 28.9 MCHC 33.4 RDW 14.7 Plt Count 130 L Neut % (Auto) 87.2 H Lymph % (Auto) 5.6 L [place] % (Auto) 5.7 Eos % (Auto) 0.2 L Baso % (Auto) 1.3 Neut # (Auto) 8300 H Lymph # (Auto) 500 L [place] # (Auto) 500 Eos # (Auto) 0 Baso # (Auto) 100 PT 12.0 INR 1.1 VBG pH VBG pCO2 VBG pO2 VBG HCO3 VBG Total CO2 VBG O2 Saturation VBG Base Excess FiO2 % Sodium 127 L Potassium 3.5 Chloride 97 L Carbon Dioxide 15 L BUN 12 Creatinine 1.38 H Estimated GFR 54 L BUN/Creatinine Ratio 8.7 Glucose 623 H* POC Whole Bld Glucose > 500 H* Lactate 5.1 H* 5.3 H* Calcium 10.5 H Total Bilirubin 0.6 AST 41 ALT 60 H Alkaline Phosphatase 103 Troponin I 0.014 0.014 NT-Pro-B Natriuret Pep 829 H Total Protein 6.2 L Albumin 3.9 Globulin 2.3 Albumin/Globulin Ratio 1.7 Urine Color Urine Appearance Urine pH Ur Specific [place] Urine Protein Urine Glucose (UA) Urine Ketones Urine Occult Blood Urine Nitrate Urine Bilirubin Urine Urobilinogen Ur Leukocyte Esterase Urine RBC Urine WBC Ur Squamous Epith Cells Urine Bacteria Vol Urine Centrifuged Nasal Screen MRSA (PCR) Ketones 0.74 H 04/20/25 04/20/25 04/20/25 19:50 20:28 20:42 WBC RBC Hgb Hct MCV MCH MCHC RDW Plt Count Neut % (Auto) Lymph % (Auto) [place] % (Auto) Eos % (Auto) Baso % (Auto) Neut # (Auto) Lymph # (Auto) [place] # (Auto) Eos # (Auto) Baso # (Auto) PT INR VBG pH 7.32 L VBG pCO2 42.0 L VBG pO2 23 L VBG HCO3 22 L VBG Total CO2 21 L VBG O2 Saturation 35 L VBG Base Excess -4.3 L FiO2 % 21.0 % Sodium Potassium Chloride Carbon Dioxide BUN Creatinine Estimated GFR BUN/Creatinine Ratio Glucose POC Whole Bld Glucose 473 H* Lactate Calcium Total Bilirubin AST ALT Alkaline Phosphatase Troponin I NT-Pro-B Natriuret Pep Total Protein Albumin Globulin Albumin/Globulin Ratio Urine Color Yellow Urine Appearance Clear Urine pH 6.0 Ur Specific [place] <=1.005 Urine Protein Negative Urine Glucose (UA) 3+ H Urine Ketones Negative Urine Occult Blood 3+ H Urine Nitrate Negative Urine Bilirubin Negative Urine Urobilinogen 0.2 Ur Leukocyte Esterase Negative Urine RBC 30-100/hpf H Urine WBC None seen Ur Squamous Epith Cells None seen Urine Bacteria None seen Vol Urine Centrifuged 10ml (spun) Nasal Screen MRSA (PCR) Ketones 04/20/25 04/20/25 04/20/25 20:44 21:02 22:03 WBC RBC Hgb Hct MCV MCH MCHC RDW Plt Count Neut % (Auto) Lymph % (Auto) [place] % (Auto) Eos % (Auto) Baso % (Auto) Neut # (Auto) Lymph # (Auto) [place] # (Auto) Eos # (Auto) Baso # (Auto) PT INR VBG pH VBG pCO2 VBG pO2 VBG HCO3 VBG Total CO2 VBG O2 Saturation VBG Base Excess FiO2 % Sodium 130 L Potassium 3.9 Chloride 100 Carbon Dioxide 20 L BUN 13 Creatinine 1.47 H Estimated GFR 50 L BUN/Creatinine Ratio 8.8 Glucose 425 H D POC Whole Bld Glucose > 500 H* Lactate Calcium 9.8 Total Bilirubin AST ALT Alkaline Phosphatase Troponin I NT-Pro-B Natriuret Pep Total Protein Albumin Globulin Albumin/Globulin Ratio Urine Color Urine Appearance Urine pH Ur Specific [place] Urine Protein Urine Glucose (UA) Urine Ketones Urine Occult Blood Urine Nitrate Urine Bilirubin Urine Urobilinogen Ur Leukocyte Esterase Urine RBC Urine WBC Ur Squamous Epith Cells Urine Bacteria Vol Urine Centrifuged Nasal Screen MRSA (PCR) Not detected Ketones 04/20/25 04/20/25 04/21/25 23:00 23:58 01:03 WBC RBC Hgb Hct MCV MCH MCHC RDW Plt Count Neut % (Auto) Lymph % (Auto) [place] % (Auto) Eos % (Auto) Baso % (Auto) Neut # (Auto) Lymph # (Auto) [place] # (Auto) Eos # (Auto) Baso # (Auto) PT INR VBG pH VBG pCO2 VBG pO2 VBG HCO3 VBG Total CO2 VBG O2 Saturation VBG Base Excess FiO2 % Sodium Potassium Chloride Carbon Dioxide BUN Creatinine Estimated GFR BUN/Creatinine Ratio Glucose POC Whole Bld Glucose > 500 H* 314 H D 202 H D Lactate Calcium Total Bilirubin AST ALT Alkaline Phosphatase Troponin I NT-Pro-B Natriuret Pep Total Protein Albumin Globulin Albumin/Globulin Ratio Urine Color Urine Appearance Urine pH Ur Specific [place] Urine Protein Urine Glucose (UA) Urine Ketones Urine Occult Blood Urine Nitrate Urine Bilirubin Urine Urobilinogen Ur Leukocyte Esterase Urine RBC Urine WBC Ur Squamous Epith Cells Urine Bacteria Vol Urine Centrifuged Nasal Screen MRSA (PCR) Ketones 04/21/25 04/21/25 04/21/25 02:02 03:04 03:48 WBC RBC Hgb Hct MCV MCH MCHC RDW Plt Count Neut % (Auto) Lymph % (Auto) [place] % (Auto) Eos % (Auto) Baso % (Auto) Neut # (Auto) Lymph # (Auto) [place] # (Auto) Eos # (Auto) Baso # (Auto) PT INR VBG pH VBG pCO2 VBG pO2 VBG HCO3 VBG Total CO2 VBG O2 Saturation VBG Base Excess FiO2 % Sodium Potassium Chloride Carbon Dioxide BUN Creatinine Estimated GFR BUN/Creatinine Ratio Glucose POC Whole Bld Glucose 286 H 65 L D 87 Lactate Calcium Total Bilirubin AST ALT Alkaline Phosphatase Troponin I NT-Pro-B Natriuret Pep Total Protein Albumin Globulin Albumin/Globulin Ratio Urine Color Urine Appearance Urine pH Ur Specific [place] Urine Protein Urine Glucose (UA) Urine Ketones Urine Occult Blood Urine Nitrate Urine Bilirubin Urine Urobilinogen Ur Leukocyte Esterase Urine RBC Urine WBC Ur Squamous Epith Cells Urine Bacteria Vol Urine Centrifuged Nasal Screen MRSA (PCR) Ketones Assessment & Plan Assessment and plan (1) Diabetic ketoacidosis: Status: Acute (2) UTI (urinary tract infection): Status: Acute (3) Severe sepsis: Status: Acute (4) Enlarged prostate: Status: Acute (5) Hydronephrosis due to obstruction of bladder: Status: Acute Assessment & Plan narrative: DKA - w/o history of it - insulin drip, IVFs, monitoring - as per protocol - likely triggered by UTI, compliant with medications - at home on metformin, Jardiance - home medications need review UTI / Sepsis / Enlarged Prostate - has bladder calculus and non-obstructive b/l renal calculi - prostate enlarged, PSA pending - needs urology follow up immidiately upon discharge - Ott placed and drained ~ 3 L of urine - has b/l hydronephrosis - Zosyn, Vancomycin - IVFs HTN - home Losartan 25 mg daily on hold - metoprolol 25 mg daily GERD / Hiatal Hernia - PPI HLD - statin CLYDE / CKD - CKD stage 3 b - IVFs Anemia - monitored HH - w/o hematuria DVT prophylaxis - SCDs Patient consented to audio-video, telemedicine visit with RN assissting with the exam. Patient located at [place], [place], provider located in [place]. Time-Based Coding :: [TOTAL MINUTES] spent with patient and on the chart (including review of chart, obtaining history, exam, reviewing outside data, placing orders, documenting exam and treatment plan, and counseling patient) on [DATE]. Quality VTE Deep Vein Thrombosis/Pulmonary Embolism Present on Admission: No
[2025-04-21 04:54] LABS: Add Manual Diff / Slide Review NO; Hematocrit 36.7 % (41-53); Hemoglobin 12.3 g/dL (13.5-17.5); Lymphocytes Absolute Auto 700 /uL (1100-4500); Mean Corpuscular HGB Conc 33.4 % (30-36); Mean Corpuscular Hemoglobin 28.9 PG (26-34); Mean Corpuscular Volume 86.4 fL (80-100); Platelet Count 131 X10^3/uL (150-400)
[2025-04-21 05:13] LABS: Alanine Aminotransferase 44 IU/L (<50); Albumin 3.2 g/dL (3.5-5.0); Albumin Globulin Ratio 1.5 (1.0-2.8); Alkaline Phosphatase 67 U/L (38-126); Blood Urea Nitrogen 13 mg/dL (9-20); Calcium 9.8 mg/dL (8.4-10.2); Carbon Dioxide 24 mmol/L (22-32); Chloride 105 mmol/L (98-107); Estimated Glomerular Filt Rate 58 mL/min (>60); Globulin 2.2 g/dL (1.7-4.1); Glucose 91 mg/dL (70-99); HEMOLYSIS < 15 (0-50); Magnesium 1.6 mg/dL (1.6-2.3); Potassium 2.9 mmol/L (3.4-5.1); Sodium 136 mmol/L (137-145); Total Protein 5.4 g/dL (6.3-8.2)
[2025-04-21 06:11] LABS: Prostate Specific Antigen 10.8 ng/mL (0.10-4.00)
[2025-04-21] MEDS: SODIUM CHLORIDE 0.9% 1,000 ML 250 ML IV ×2 (06:45→06:49)
--- NOTE | 2025-04-21 07:52 | PM.PN.1 ---
Subjective Subjective Interval history: Summary: 74 y/o with PMH of NIDDM, HTN, HLD, presented with bilateral leg swelling, difficulty urinating and exertional dyspnea that has been ongoing for the past few weeks and gradually worsening. ED workup showing enlarged prostate, bladder and b/l renal stones, hydronephrosis, UTI and DKA. He does not take anything for enlarged prostate, was not aware of stones and never had DKA before. Course: treated with IVF and IVF insulin. S: He is feeling a lot better. He was hungry today. He feels better with a Ott catheter in place. He denies any nausea. He was taking pills for diabetes at home. Exam Vital Signs (past 8 hours): - 04/21/25 00:00 04/21/25 01:00 04/21/25 02:00 Pulse Rate 65 60 60 Respiratory Rate 18 18 18 Blood Pressure 123/61 117/57 L 113/64 Pulse Oximetry 100 99 99 Oxygen Flow Rate 0 04/21/25 03:00 04/21/25 04:00 04/21/25 05:00 Pulse Rate 81 58 L 56 L Respiratory Rate 18 18 18 Blood Pressure 109/58 L 108/57 L 102/54 L Pulse Oximetry 97 99 99 Oxygen Flow Rate 0 0 04/21/25 06:00 Pulse Rate 60 Respiratory Rate 16 Blood Pressure 98/52 L Pulse Oximetry 100 Oxygen Flow Rate Oxygen Delivery Method Room Air Oxygen Flow Rate 0 Narrative Exam Narrative: NAD, alert and oriented. Fluent speech. Lungs are clear, normal rate and effort. Heart is regular, no murmur gallop or rub. Abdomen is soft, non distended. Extremities are with bilateral gross edema. Ott. Objective ECG Impression: Intervals [place] Rate: 106 P: 57 TN: 158 QRS: 48 QRSD: 82 T: 67 QT: 338 QTc: 448 Interpretive Statements Sinus tachycardia Imaging Multiple studies: : Radiologist's impression: APCT: Severe prostatomegaly with bladder outlet obstruction resulting in marked dilatation of the urinary bladder and moderate bilateral hydronephrosis and hydroureter with delayed bilateral nephrograms. There is a large bladder stone consistent with urine stasis. There are bilateral nonobstructing renal stones, right greater than left. Chronic large hiatal hernia with chronic organo-axial gastric volvulus. Large fecal load. Comment: Recommend Ott placement and considering reimaging in 2-3 days to demonstrate improvement in hydronephrosis. Vascular ultrasound: Negative left lower extremity duplex venous ultrasound for DVT. Chest CTA: No pulmonary embolus. No acute cardiopulmonary process. Large hiatal hernia with organo-axial volvulus. Comment: Please refer to separate report for significant findings in the abdomen and pelvis. Chest x-ray: Appears to be someone elses Xray 1. Right sided pneumothorax. 2. Large hiatal hernia. 3. No consolidative pneumonia or pulmonary edema. Communication: The above findings of right lateral pneumothorax were discussed with Dr. Hwang of the ER Repeat CXR 04/21 AM (correct patient): No pneumothorax. Large hiatal hernia. Labs 04/21/25 04:10 04/21/25 04:10 Labs: Laboratory Results - last 24 hr 04/20/25 04/20/25 04/20/25 17:00 18:42 18:50 WBC 9.5 RBC 4.62 Hgb 13.4 L Hct 40.0 L MCV 86.6 MCH 28.9 MCHC 33.4 RDW 14.7 Plt Count 130 L Neut % (Auto) 87.2 H Lymph % (Auto) 5.6 L [place] % (Auto) 5.7 Eos % (Auto) 0.2 L Baso % (Auto) 1.3 Neut # (Auto) 8300 H Lymph # (Auto) 500 L [place] # (Auto) 500 Eos # (Auto) 0 Baso # (Auto) 100 PT 12.0 INR 1.1 VBG pH VBG pCO2 VBG pO2 VBG HCO3 VBG Total CO2 VBG O2 Saturation VBG Base Excess FiO2 % Sodium 127 L Potassium 3.5 Chloride 97 L Carbon Dioxide 15 L BUN 12 Creatinine 1.38 H Estimated GFR 54 L BUN/Creatinine Ratio 8.7 Glucose 623 H* POC Whole Bld Glucose > 500 H* Lactate 5.1 H* 5.3 H* Calcium 10.5 H Magnesium Total Bilirubin 0.6 AST 41 ALT 60 H Alkaline Phosphatase 103 Troponin I 0.014 0.014 NT-Pro-B Natriuret Pep 829 H Total Protein 6.2 L Albumin 3.9 Globulin 2.3 Albumin/Globulin Ratio 1.7 Prostate Specific Ag Urine Color Urine Appearance Urine pH Ur Specific [place] Urine Protein Urine Glucose (UA) Urine Ketones Urine Occult Blood Urine Nitrate Urine Bilirubin Urine Urobilinogen Ur Leukocyte Esterase Urine RBC Urine WBC Ur Squamous Epith Cells Urine Bacteria Vol Urine Centrifuged Nasal Screen MRSA (PCR) Ketones 0.74 H 04/20/25 04/20/25 04/20/25 19:50 20:28 20:42 WBC RBC Hgb Hct MCV MCH MCHC RDW Plt Count Neut % (Auto) Lymph % (Auto) [place] % (Auto) Eos % (Auto) Baso % (Auto) Neut # (Auto) Lymph # (Auto) [place] # (Auto) Eos # (Auto) Baso # (Auto) PT INR VBG pH 7.32 L VBG pCO2 42.0 L VBG pO2 23 L VBG HCO3 22 L VBG Total CO2 21 L VBG O2 Saturation 35 L VBG Base Excess -4.3 L FiO2 % 21.0 % Sodium Potassium Chloride Carbon Dioxide BUN Creatinine Estimated GFR BUN/Creatinine Ratio Glucose POC Whole Bld Glucose 473 H* Lactate Calcium Magnesium Total Bilirubin AST ALT Alkaline Phosphatase Troponin I NT-Pro-B Natriuret Pep Total Protein Albumin Globulin Albumin/Globulin Ratio Prostate Specific Ag Urine Color Yellow Urine Appearance Clear Urine pH 6.0 Ur Specific [place] <=1.005 Urine Protein Negative Urine Glucose (UA) 3+ H Urine Ketones Negative Urine Occult Blood 3+ H Urine Nitrate Negative Urine Bilirubin Negative Urine Urobilinogen 0.2 Ur Leukocyte Esterase Negative Urine RBC 30-100/hpf H Urine WBC None seen Ur Squamous Epith Cells None seen Urine Bacteria None seen Vol Urine Centrifuged 10ml (spun) Nasal Screen MRSA (PCR) Ketones 04/20/25 04/20/25 04/20/25 20:44 21:02 22:03 WBC RBC Hgb Hct MCV MCH MCHC RDW Plt Count Neut % (Auto) Lymph % (Auto) [place] % (Auto) Eos % (Auto) Baso % (Auto) Neut # (Auto) Lymph # (Auto) [place] # (Auto) Eos # (Auto) Baso # (Auto) PT INR VBG pH VBG pCO2 VBG pO2 VBG HCO3 VBG Total CO2 VBG O2 Saturation VBG Base Excess FiO2 % Sodium 130 L Potassium 3.9 Chloride 100 Carbon Dioxide 20 L BUN 13 Creatinine 1.47 H Estimated GFR 50 L BUN/Creatinine Ratio 8.8 Glucose 425 H D POC Whole Bld Glucose > 500 H* Lactate Calcium 9.8 Magnesium Total Bilirubin AST ALT Alkaline Phosphatase Troponin I NT-Pro-B Natriuret Pep Total Protein Albumin Globulin Albumin/Globulin Ratio Prostate Specific Ag Urine Color Urine Appearance Urine pH Ur Specific [place] Urine Protein Urine Glucose (UA) Urine Ketones Urine Occult Blood Urine Nitrate Urine Bilirubin Urine Urobilinogen Ur Leukocyte Esterase Urine RBC Urine WBC Ur Squamous Epith Cells Urine Bacteria Vol Urine Centrifuged Nasal Screen MRSA (PCR) Not detected Ketones 04/20/25 04/20/25 04/21/25 23:00 23:58 01:03 WBC RBC Hgb Hct MCV MCH MCHC RDW Plt Count Neut % (Auto) Lymph % (Auto) [place] % (Auto) Eos % (Auto) Baso % (Auto) Neut # (Auto) Lymph # (Auto) [place] # (Auto) Eos # (Auto) Baso # (Auto) PT INR VBG pH VBG pCO2 VBG pO2 VBG HCO3 VBG Total CO2 VBG O2 Saturation VBG Base Excess FiO2 % Sodium Potassium Chloride Carbon Dioxide BUN Creatinine Estimated GFR BUN/Creatinine Ratio Glucose POC Whole Bld Glucose > 500 H* 314 H D 202 H D Lactate Calcium Magnesium Total Bilirubin AST ALT Alkaline Phosphatase Troponin I NT-Pro-B Natriuret Pep Total Protein Albumin Globulin Albumin/Globulin Ratio Prostate Specific Ag Urine Color Urine Appearance Urine pH Ur Specific [place] Urine Protein Urine Glucose (UA) Urine Ketones Urine Occult Blood Urine Nitrate Urine Bilirubin Urine Urobilinogen Ur Leukocyte Esterase Urine RBC Urine WBC Ur Squamous Epith Cells Urine Bacteria Vol Urine Centrifuged Nasal Screen MRSA (PCR) Ketones 04/21/25 04/21/25 04/21/25 02:02 03:04 03:48 WBC RBC Hgb Hct MCV MCH MCHC RDW Plt Count Neut % (Auto) Lymph % (Auto) [place] % (Auto) Eos % (Auto) Baso % (Auto) Neut # (Auto) Lymph # (Auto) [place] # (Auto) Eos # (Auto) Baso # (Auto) PT INR VBG pH VBG pCO2 VBG pO2 VBG HCO3 VBG Total CO2 VBG O2 Saturation VBG Base Excess FiO2 % Sodium Potassium Chloride Carbon Dioxide BUN Creatinine Estimated GFR BUN/Creatinine Ratio Glucose POC Whole Bld Glucose 286 H 65 L D 87 Lactate Calcium Magnesium Total Bilirubin AST ALT Alkaline Phosphatase Troponin I NT-Pro-B Natriuret Pep Total Protein Albumin Globulin Albumin/Globulin Ratio Prostate Specific Ag Urine Color Urine Appearance Urine pH Ur Specific [place] Urine Protein Urine Glucose (UA) Urine Ketones Urine Occult Blood Urine Nitrate Urine Bilirubin Urine Urobilinogen Ur Leukocyte Esterase Urine RBC Urine WBC Ur Squamous Epith Cells Urine Bacteria Vol Urine Centrifuged Nasal Screen MRSA (PCR) Ketones 04/21/25 04/21/25 04/21/25 04:10 05:02 05:59 WBC 10.6 RBC 4.25 L Hgb 12.3 L Hct 36.7 L MCV 86.4 MCH 28.9 MCHC 33.4 RDW 14.4 Plt Count 131 L Neut % (Auto) 83.3 H Lymph % (Auto) 6.4 L [place] % (Auto) 8.5 Eos % (Auto) 0.6 L Baso % (Auto) 1.2 Neut # (Auto) 8800 H Lymph # (Auto) 700 L [place] # (Auto) 900 Eos # (Auto) 100 Baso # (Auto) 100 PT INR VBG pH VBG pCO2 VBG pO2 VBG HCO3 VBG Total CO2 VBG O2 Saturation VBG Base Excess FiO2 % Sodium 136 L Potassium 2.9 L Chloride 105 Carbon Dioxide 24 BUN 13 Creatinine 1.30 H Estimated GFR 58 L BUN/Creatinine Ratio 10.0 Glucose 91 D POC Whole Bld Glucose 88 274 H D Lactate Calcium 9.8 Magnesium 1.6 Total Bilirubin 0.4 AST 33 ALT 44 Alkaline Phosphatase 67 Troponin I NT-Pro-B Natriuret Pep Total Protein 5.4 L Albumin 3.2 L Globulin 2.2 Albumin/Globulin Ratio 1.5 Prostate Specific Ag 10.8 H Urine Color Urine Appearance Urine pH Ur Specific [place] Urine Protein Urine Glucose (UA) Urine Ketones Urine Occult Blood Urine Nitrate Urine Bilirubin Urine Urobilinogen Ur Leukocyte Esterase Urine RBC Urine WBC Ur Squamous Epith Cells Urine Bacteria Vol Urine Centrifuged Nasal Screen MRSA (PCR) Ketones 04/21/25 06:57 WBC RBC Hgb Hct MCV MCH MCHC RDW Plt Count Neut % (Auto) Lymph % (Auto) [place] % (Auto) Eos % (Auto) Baso % (Auto) Neut # (Auto) Lymph # (Auto) [place] # (Auto) Eos # (Auto) Baso # (Auto) PT INR VBG pH VBG pCO2 VBG pO2 VBG HCO3 VBG Total CO2 VBG O2 Saturation VBG Base Excess FiO2 % Sodium Potassium Chloride Carbon Dioxide BUN Creatinine Estimated GFR BUN/Creatinine Ratio Glucose POC Whole Bld Glucose 92 D Lactate Calcium Magnesium Total Bilirubin AST ALT Alkaline Phosphatase Troponin I NT-Pro-B Natriuret Pep Total Protein Albumin Globulin Albumin/Globulin Ratio Prostate Specific Ag Urine Color Urine Appearance Urine pH Ur Specific [place] Urine Protein Urine Glucose (UA) Urine Ketones Urine Occult Blood Urine Nitrate Urine Bilirubin Urine Urobilinogen Ur Leukocyte Esterase Urine RBC Urine WBC Ur Squamous Epith Cells Urine Bacteria Vol Urine Centrifuged Nasal Screen MRSA (PCR) Ketones PFSH Surgical History H/O: knee surgery History of inguinal hernia repair Family History Brother Hypertension Hyperlipidemia Social History household members: none Smoking Status: Current some day smoker Smokeless tobacco user: other alcohol intake: current substance use type: does not use Assessment & Plan Assessment & Plan narrative: 1. DKA, secondary to medication noncompliance. Improved. 2. UTI, active. Cultures pending. 3. BPH and retention, improved with Ott catheter. 4. Right pneumothorax, not present. I believe the chest x-ray and her his file is not his. A repeat chest x-ray this morning and CTA of the chest are negative for pneumothorax. 5. CLYDE (CKD), active. 6. Hypokalemia, improved. 7. Anemia, stable. 8. HTN, active. PLAN: -we will transition to glargine, and subcutaneous lispro. -check A1c. -continue empiric antibiotics and follow cultures. Monitor blood cultures. -continue Ott and monitor renal function. Start Flomax. -monitor hemoglobin. Time-Based Coding :: [TOTAL MINUTES] spent with patient and on the chart (including review of chart, obtaining history, exam, reviewing outside data, placing orders, documenting exam and treatment plan, and counseling patient) on [DATE]. Quality VTE Deep Vein Thrombosis/Pulmonary Embolism Present on Admission: No
--- NOTE | 2025-04-21 07:57 | DI.RAD.S_ITS ---
PROCEDURE: XR CHEST 1V INDICATIONS: FU pneumothorax TECHNIQUE: One view of the chest was acquired. COMPARISON: [facility], CR, XR CHEST 1V, 04/20/2025, 16:16. FINDINGS: Surgical changes and devices: Overlying monitoring wires. Lungs and pleura: No evidence of right pneumothorax. The right lung is fully aerated. There is minor left lateral lower lung base atelectasis blunting the costophrenic sulcus. Mediastinum: Normal cardiomediastinal contour. Evidence of fluid level and large hiatal hernia. No central venous congestion. Bones and chest wall: No suspicious bony lesions. Overlying soft tissues appear unremarkable. IMPRESSION: No pneumothorax. Large hiatal hernia. Dictated by: Cornelia Vasquez M.D. on 04/21/2025 at 9:05 Approved by: Cornelia Vasquez M.D. on 04/21/2025 at 9:07
[2025-04-21] MEDS: POTASSIUM CHLORIDE IN WATER 10 MEQ/100 ML PIGGYBACK 100 MEQ IV ×6 (08:38→14:57)
--- NOTE | 2025-04-21 09:08 | PC.NURSE ---
Day shift: Pt A&Ox4, fatigued and reporting hunger. Glucose 50, DKA/HHS protocol followed, D10 bolus provided per protocol. Recheck glucose 75, pt denies symptoms. Care ongoing.
[2025-04-21] MEDS: METOPROLOL ER 25 MG TABLET PO (09:48)
[2025-04-21] MEDS: ATORVASTATIN 20 MG TABLET 80 MG PO (09:48)
[2025-04-21] MEDS: ASPIRIN EC 81 MG TABLET PO (09:49)
[2025-04-21] MEDS: MAGNESIUM CHLORIDE 64 MG TABLET 128 MG PO (09:49)
[2025-04-21] MEDS: PANTOPRAZOLE 40 MG VIAL IV (09:49)
[2025-04-21 09:57] LABS: Lactate (Lactic Acid) 1.6 mmol/L (0.7-2.1)
[2025-04-21] MEDS: INSULIN GLARGINE 100 UNIT/ML 3ML PEN 15 UNIT SUBCUT (12:21)
--- NOTE | 2025-04-21 13:39 | DIET.CONS ---
Dietary Consultation Note Admission Date: 04/20/2025 20:53 Assessment: 74 y M admitted for DKA/UTI. Dietitian screened for DKA. Met with pt at bedside. Report being off his 10-20 units of lantus for few months now, but was taking Jardiance and metformin. Reports he will see a PCP after this. Checks BG intermittently, doesn't like pricking fingers. Has had previous educ on carb counting and label reading, does look at total carbs and added sugars on labels and tries to chose low options, but acknowledges going over at times. Diet recall: cereal sandwiches frozen meal or fast food or sandwiches ice cream 1/2 c to 1 cup Ht: 182.88 cm Wt: 83.5 kg BMI: 25.0 UBW: - Last BM: 04/20/25 (04/20/25 21:49) MNA: 13 Hayden Score: 21 Diet: 04/21/25 Breakfast Carbohydrate Consistent Diet Diet Modifications: Carbohydrate level: Medium (3 CHO) Reflex DM orders: No Food Texture: Level 7 - Regular Liquid Consistency: Level 0 - Thin Labs: RBC 4.25 X10^6/uL (4.5-5.9) L 04/21/25 04:10 Hgb 12.3 g/dL (13.5-17.5) L 04/21/25 04:10 Hct 36.7 % (41-53) L 04/21/25 04:10 Creatinine 1.30 mg/dL (0.66-1.25) H 04/21/25 04:10 Lactate 1.6 mmol/L (0.7-2.1) 04/21/25 09:30 NT-Pro-B Natriuret Pep 829 pg/mL (<125) H 04/20/25 17:00 Nutrition Diagnosis: Altered nutrition related lab values r/t not taking medications and variable CHO intakes aeb admitted for DKA Interventions: -Encouraged f/u with PCP and consideration of a CGM dependent on insurance coverage -[facility] referral to DM educ program when established with PCP -Reviewed and provided handout on BG numbers, treatment for lows, and CHO counting and encouraged spacing of meals and pairing with protein source and provided examples EER: 45-60 g CHO at meals, 15-30 g CHO at snacks Monitoring/Evaluations: BG, po intakes Electronically Signed by: Ela Meeks 04/21/25 13:39 Clinical Dietitian [address] [address]
--- NOTE | 2025-04-21 16:06 | CM.DANOTE ---
DCP Assessment Note: Pt is a 74yo male, resident of [place], is admitted for DKA, UTI, and renal stones. Pt lives in a house alone. Pt's Primary Care Provider is with the [facility], does not have current care established and insurance is Medicare and for Life. Reviewed chart and discussed with multidisciplinary team pt's medical status and initial discharge needs. Per hospitalist, pt had 3L of urinary output via henley and could be attributed to renal stones and enlarged prostate. Pt also was not medication compliant for DM2. DCP met w/patient at bedside; introduced self and role. Patient was found in bed, alert and oriented, cooperative with assessment. Pt confirmed living situation and good support in friend. Pt expressed preference in discharge home as soon as available. Pt has no history of SNF Rehab or Home health. Pt states he is very independent at baseline, has canes at home that he hopes to utilize now for extra support. Pt interested in Urology consult upon discharge if possible. Pt would benefit from close PCP follow up, would need new PCP establishment either at [email or web address] or on [facility]; pt not interested in discussing this with SALES AND MARKETING ASSISTANT at this time due to fatigue. Plan: Anticipating dc home on 04/23 or when medically cleared. Pt friend to transport home. CM team will follow closely for coordination of discharge plans. LUI Lao Discharge Planning/Care Management CM Discharge Assessment Start: 04/20/25 21:23 Freq: Status: Active Protocol: Document 04/21/25 16:04 MW (Rec: 04/21/25 16:06 MW [id number]) Discharge Planning Assessment Assigned Discharge GENTRY Watson [employer] Provider [facility] Insurance Medicare, DPOA/Assigned Johnna Portillo Designee Name Contact Information [phone] Advance Directives? No History Provided By Patient,Medical Record Has Patient been No admitted in last 30 days? Prior Living House Arrangements Household Members none Type of Drives own vehicle transporation used prior to admit Independent with ADL Yes 's Is patient alert and Yes oriented? Caregiver for No Another DME Already Rented / Cane Owned Discharge Plan Home Transportation FriendBird Referrals Initiated None needed Review Status In Process Please Provide Date 04/21/25 Initial DC Assessment Was Performed Next Review Type Continued Stay Review
--- NOTE | 2025-04-21 16:17 | DI.ECHO.S_ITS ---
[facility]+ [facility] : : [address] : : [place] : : [id number] : : Phone: [phone] Echocardiogram Report + + :Name: REED GONZALEZ Study Date: 04/22/2025 Height: 72 in : :Hospital ReadingLocation: Weight: 184 lb : : Gender: Male BSA: 2.1 m2 : :: 1950 Age: 74 yrs BP: 141/76 mmHg: :Reason For Study: EDEMA : :Ordering Physician: GABI, : :JOSHUA Hester Performed By: Cindi Rhodes : :Referring: JOSHUA ASHLEY : + + Interpretation Summary The left ventricle is normal in size and wall thickness. Left ventricular ejection fraction is estimated to be 50 +/- 5%. Previous LVEF 60 to 65%. No obvious significant regional wall motion abnormality seen. The right ventricle is normal size. The right ventricular systolic function is normal. There is mild mitral regurgitation. There is mild tricuspid regurgitation. The right ventricular systolic pressure is estimated to be at least 21 mmHg based on an estimated right atrial pressure of 3 mm Hg. There is mild to moderate pulmonic regurgitation. The aortic root is mildly dilated. Mild atherosclerotic plaque(s) in the aortic arch. Moderate atherosclerotic plaque(s) in the descending aorta. There is a trivial to small pericardial effusion noted. Small pericardial effusion anterior to the free wall of right ventricle from subcostal view with echogenic material likely exudates. Not much fluid near the apex. Posteriorly are trivial. No echocardiographic evidence of cardiac tamponade.BP: 141/76 mmHg. New pericardial effusion. Procedure: A two-dimensional transthoracic echocardiogram with color flow and Doppler was performed. The study quality was technically adequate. Comparison is made with the echocardiogram of 12/30/2018. The patient was in sinus bradycardia with heart rates between 52-63 bpm during the exam. Left Ventricle: The left ventricle is normal in size and wall thickness. There is no thrombus. Left ventricular ejection fraction is estimated to be 50 +/- 5%. No obvious significant regional wall motion abnormality seen. Normal diastolic function. Right Ventricle: The right ventricle is normal size. There is mild right ventricular hypertrophy. The right ventricular systolic function is normal. Atria: The left atrial size is normal. There has been no significant change since the previous study. Right atrial size is normal. There is no Doppler evidence for an interatrial shunt. Mitral Valve: The mitral valve leaflets are mildly calcified. There is mild mitral annular calcification. No significant mitral valve stenosis. There is mild mitral regurgitation. Aortic Valve: The aortic valve is trileaflet. The aortic valve opens well. There is discrete nodular thickening of the non- coronary cusp. The aortic valve is moderately calcified. There is no aortic valve stenosis. No aortic regurgitation is present. Tricuspid Valve: The tricuspid valve leaflets are thickened and/or calcified, but open well. There is mild tricuspid regurgitation. The right ventricular systolic pressure is estimated to be at least 21 mmHg based on an estimated right atrial pressure of 3 mm Hg. Pulmonic Valve: The pulmonic valve leaflets are thin and pliable; valve motion is normal. There is mild to moderate pulmonic regurgitation. Great Vessels: The aortic root is mildly dilated. The dimensions of the ascending aorta are normal. Mild atherosclerotic plaque(s) in the aortic arch. Moderate atherosclerotic plaque(s) in the descending aorta. The IVC is of normal diameter and collapses greater than 50% with a sniff. This suggests a low right atrial pressure of 3 mm Hg. Pericardium/ Pleura There is a trivial to small pericardial effusion noted. Small pericardial effusion anterior to the free wall of right ventricle from subcostal view with echogenic material likely exudates. Not much fluid near the apex. Posteriorly are trivial. No echocardiographic evidence of cardiac tamponade. There is no pleural effusion. MMode/2D Measurements & Calculations LVIDd: 4.8 cm LVOT diam: 2.2 cm LVIDs: 3.2 cm Ao root diam: 4.1 cm FS: 33.8 % asc Aorta Diam: 3.8 cm EPSS: 0.83 cm Ao Arch Diam (Prox Trans): 3.4 cm IVSd: 0.99 cm LVPWd: 0.87 cm LV rueda. diameter/BSA (cm/m^2): 2.3 LV sys. diameter/BSA (cm/m^2): 1.6 LA A2 area: 23.2 cm2 RA long axis: 5.0 cm LA A4 area: 20.2 cm2 RA area: 19.0 cm2 LA length (vol): 6.0 cm RA vol: 60.6 ml LA vol: 66.3 ml RA : 29.5 ml/m2 LA vol index: 32.2 ml/m2 IVC diam: 1.9 cm RVD1 (basal): 4.0 cm RVD2 (mid): 3.1 cm TAPSE: 2.1 cm Doppler Measurements & Calculations Ao V2 max: 110.6 cm/sec LVOT Max Efra: 85.6 cm/sec Ao V2 mean: 72.2 cm/sec LV V1 max P.9 mmHg Ao max P.3 mmHg LV V1 VTI: 19.4 cm Ao mean P.7 mmHg NIKOLAY(I,D): 3.1 cm2 Ao V2 VTI: 24.5 cm NIKOLAY(V,D): 3.0 cm2 sev ratio: 0.79 NIKOLAY indexed to BSA (cm^2/m^2): 1.5 MV E max efra: 59.7 cm/sec TR max efra: 212.6 cm/sec MV A max efra: 49.2 cm/sec TR max P.1 mmHg MV E/A: 1.2 PA V2 max: 64.6 cm/sec Med Peak E' Efra: 6.7 cm/sec PA V2 mean: 42.1 cm/sec E/E' med: 9.0 PA mean P.81 mmHg Lat Peak E' Efra: 9.4 cm/sec PA pr(Accel): -1.9 mmHg E/E' lat: 6.4 E/e' average: 7.7 MV dec time: 0.24 sec Pulm A Revs Efra: 28.1 cm/sec SV(LVOT): 75.4 ml Pulm A Revs Dur: 0.13 sec Reading Physician:01:04 PM
[2025-04-21] MEDS: ENOXAPARIN 40 MG/0.4 ML SYRINGE SUBCUT (16:42)
[2025-04-21] MEDS: INSULIN LISPRO 100 UNIT/ML 3ML VIAL SUBCUT (16:42)
[2025-04-21 19:00] LABS: HEMOLYSIS 18 (0-50); Magnesium 1.5 mg/dL (1.6-2.3); Potassium 3.9 mmol/L (3.4-5.1)
[2025-04-21] MEDS: MAGNESIUM SULFATE 2 GM/50 ML PIGGYBACK IV (20:03)
[2025-04-21] MEDS: SODIUM CHLORIDE 0.9% FLUSH 10 ML IV (22:53)
[2025-04-22] VITALS (7 sets, daily range): BP systolic 116–141; BP diastolic 64–76; PULSE 56–67; RESP 15–18; TEMP 35.8–36.6; O2SAT 93–99
[2025-04-22 05:21] LABS: Add Manual Diff / Slide Review NO; Hematocrit 39.4 % (41-53); Hemoglobin 13.2 g/dL (13.5-17.5); Lymphocytes Absolute Auto 1300 /uL (1100-4500); Mean Corpuscular HGB Conc 33.4 % (30-36); Mean Corpuscular Hemoglobin 28.8 PG (26-34); Mean Corpuscular Volume 86.2 fL (80-100); Platelet Count 125 X10^3/uL (150-400)
[2025-04-22 05:38] LABS: Hemoglobin A1C% w Est Avg Glu > 14.0 % (4.0-6.0)
[2025-04-22 05:39] LABS: Blood Urea Nitrogen 12 mg/dL (9-20); Calcium 9.8 mg/dL (8.4-10.2); Carbon Dioxide 25 mmol/L (22-32); Chloride 104 mmol/L (98-107); Estimated Glomerular Filt Rate > 60 mL/min (>60); Glucose 120 mg/dL (70-99); HEMOLYSIS < 15 (0-50); Potassium 3.7 mmol/L (3.4-5.1); Sodium 133 mmol/L (137-145)
[2025-04-22 06:06] LABS: Magnesium 1.8 mg/dL (1.6-2.3)
[2025-04-22] MEDS: SODIUM CHLORIDE 0.9% FLUSH 10 ML IV ×2 (08:25→20:59)
[2025-04-22] MEDS: INSULIN GLARGINE 100 UNIT/ML 3ML PEN 15 UNIT SUBCUT (08:25)
[2025-04-22] MEDS: TAMSULOSIN 0.4 MG CAPSULE PO (08:25)
[2025-04-22] MEDS: INSULIN LISPRO 100 UNIT/ML 3ML VIAL SUBCUT ×4 (08:25→20:56)
[2025-04-22] MEDS: PANTOPRAZOLE 40 MG VIAL IV (08:25)
[2025-04-22] MEDS: METOPROLOL ER 25 MG TABLET PO (08:25)
[2025-04-22] MEDS: ENOXAPARIN 40 MG/0.4 ML SYRINGE SUBCUT (08:25)
[2025-04-22] MEDS: ASPIRIN EC 81 MG TABLET PO (08:25)
[2025-04-22] MEDS: ATORVASTATIN 20 MG TABLET 80 MG PO (08:25)
--- NOTE | 2025-04-22 12:02 | PM.PN.1 ---
Subjective Subjective Interval history: 74 yo male w/DM2, HTN, HLD, tobacco dependence admitted w/DKA, UTI, HILARIO d/t severe prostatomegaly (resulting in hydronephrosis; imaging also showed bilat renal stones). CT also showed a large fecal load, large hiatal hernia w/chronic gastric volvulus. Patient reports he is feeling better today than he was yesterday. He denies any nausea. He is hungry and was able to eat breakfast. He reports he did have a small bowel movement yesterday. He did become tearful when discussing a friend's son who recently sustained a traumatic brain injury while riding a motorcycle and getting in a wreck. He states he used to ride motorcycles but had to give it up due to his slowing reflexes with age. He states he typically does not seek medical care as he ?does not like doctors?. However, he understands he will need to see Urology with regard to his prostate enlargement and issues emptying his bladder. He does have concern about his risk for prostate cancer particularly in light of his elevated PSA. He had been taking Januvia, Jardiance, and metformin prior to admission. He understands that those were not effective for controlling his diabetes Exam Vital Signs (past 8 hours): - 04/21/25 13:00 04/21/25 13:30 04/21/25 14:00 Temperature Pulse Rate 59 L 60 53 L Respiratory Rate 11 L 12 11 L Blood Pressure Pulse Oximetry 97 97 Oxygen Flow Rate 04/21/25 14:30 04/21/25 15:00 04/21/25 15:30 Temperature Pulse Rate 51 L 51 L 50 L Respiratory Rate 10 L 10 L 10 L Blood Pressure Pulse Oximetry Oxygen Flow Rate 04/21/25 16:00 04/21/25 16:00 04/21/25 16:05 Temperature 97.4 F L Pulse Rate 59 L 58 L Respiratory Rate 14 16 Blood Pressure Pulse Oximetry 98 Oxygen Flow Rate 0 04/21/25 16:05 04/21/25 20:17 Temperature 97.3 F L Pulse Rate 58 L Respiratory Rate 18 Blood Pressure 153/71 H 148/82 H Pulse Oximetry 98 Oxygen Flow Rate 0 Oxygen Delivery Method Room Air Oxygen Flow Rate 0 Narrative Exam Narrative: GEN: Middle-aged male, Alert and oriented x 3, NAD HEENT:NC, Face symmetric CHEST: Respiratory excursions symmetric, CTAB CV: RRR, no M/R/G ABD: Soft, NT/ND, BT present in all 4 quadrants, no organomegaly or masses EXTR: warm, well perfused, no C/C/bilateral lower extremity pitting edema, dorsal feet have erythema and delayed capillary refill with difficult to palpate pulses SKIN: warm and dry, no rash NEURO: Alert and oriented x 3, nonfocal Objective Labs 04/22/25 04:51 04/22/25 04:51 Labs: Laboratory Results - last 24 hr 04/20/25 04/20/25 04/20/25 20:42 20:44 21:02 WBC RBC Hgb Hct MCV MCH MCHC RDW Plt Count Neut % (Auto) Lymph % (Auto) [place] % (Auto) Eos % (Auto) Baso % (Auto) Neut # (Auto) Lymph # (Auto) [place] # (Auto) Eos # (Auto) Baso # (Auto) VBG pH 7.32 L VBG pCO2 42.0 L VBG pO2 23 L VBG HCO3 22 L VBG Total CO2 21 L VBG O2 Saturation 35 L VBG Base Excess -4.3 L FiO2 % 21.0 % Sodium 130 L Potassium 3.9 Chloride 100 Carbon Dioxide 20 L BUN 13 Creatinine 1.47 H Estimated GFR 50 L BUN/Creatinine Ratio 8.8 Glucose 425 H D POC Whole Bld Glucose Lactate Calcium 9.8 Magnesium Total Bilirubin AST ALT Alkaline Phosphatase Total Protein Albumin Globulin Albumin/Globulin Ratio Prostate Specific Ag Nasal Screen MRSA (PCR) Not detected 04/20/25 04/20/25 04/20/25 22:03 23:00 23:58 WBC RBC Hgb Hct MCV MCH MCHC RDW Plt Count Neut % (Auto) Lymph % (Auto) [place] % (Auto) Eos % (Auto) Baso % (Auto) Neut # (Auto) Lymph # (Auto) [place] # (Auto) Eos # (Auto) Baso # (Auto) VBG pH VBG pCO2 VBG pO2 VBG HCO3 VBG Total CO2 VBG O2 Saturation VBG Base Excess FiO2 % Sodium Potassium Chloride Carbon Dioxide BUN Creatinine Estimated GFR BUN/Creatinine Ratio Glucose POC Whole Bld Glucose > 500 H* > 500 H* 314 H D Lactate Calcium Magnesium Total Bilirubin AST ALT Alkaline Phosphatase Total Protein Albumin Globulin Albumin/Globulin Ratio Prostate Specific Ag Nasal Screen MRSA (PCR) 04/21/25 04/21/25 04/21/25 01:03 02:02 03:04 WBC RBC Hgb Hct MCV MCH MCHC RDW Plt Count Neut % (Auto) Lymph % (Auto) [place] % (Auto) Eos % (Auto) Baso % (Auto) Neut # (Auto) Lymph # (Auto) [place] # (Auto) Eos # (Auto) Baso # (Auto) VBG pH VBG pCO2 VBG pO2 VBG HCO3 VBG Total CO2 VBG O2 Saturation VBG Base Excess FiO2 % Sodium Potassium Chloride Carbon Dioxide BUN Creatinine Estimated GFR BUN/Creatinine Ratio Glucose POC Whole Bld Glucose 202 H D 286 H 65 L D Lactate Calcium Magnesium Total Bilirubin AST ALT Alkaline Phosphatase Total Protein Albumin Globulin Albumin/Globulin Ratio Prostate Specific Ag Nasal Screen MRSA (PCR) 04/21/25 04/21/25 04/21/25 03:48 04:10 05:02 WBC 10.6 RBC 4.25 L Hgb 12.3 L Hct 36.7 L MCV 86.4 MCH 28.9 MCHC 33.4 RDW 14.4 Plt Count 131 L Neut % (Auto) 83.3 H Lymph % (Auto) 6.4 L [place] % (Auto) 8.5 Eos % (Auto) 0.6 L Baso % (Auto) 1.2 Neut # (Auto) 8800 H Lymph # (Auto) 700 L [place] # (Auto) 900 Eos # (Auto) 100 Baso # (Auto) 100 VBG pH VBG pCO2 VBG pO2 VBG HCO3 VBG Total CO2 VBG O2 Saturation VBG Base Excess FiO2 % Sodium 136 L Potassium 2.9 L Chloride 105 Carbon Dioxide 24 BUN 13 Creatinine 1.30 H Estimated GFR 58 L BUN/Creatinine Ratio 10.0 Glucose 91 D POC Whole Bld Glucose 87 88 Lactate Calcium 9.8 Magnesium 1.6 Total Bilirubin 0.4 AST 33 ALT 44 Alkaline Phosphatase 67 Total Protein 5.4 L Albumin 3.2 L Globulin 2.2 Albumin/Globulin Ratio 1.5 Prostate Specific Ag 10.8 H Nasal Screen MRSA (PCR) 04/21/25 04/21/25 04/21/25 05:59 06:57 08:24 WBC RBC Hgb Hct MCV MCH MCHC RDW Plt Count Neut % (Auto) Lymph % (Auto) [place] % (Auto) Eos % (Auto) Baso % (Auto) Neut # (Auto) Lymph # (Auto) [place] # (Auto) Eos # (Auto) Baso # (Auto) VBG pH VBG pCO2 VBG pO2 VBG HCO3 VBG Total CO2 VBG O2 Saturation VBG Base Excess FiO2 % Sodium Potassium Chloride Carbon Dioxide BUN Creatinine Estimated GFR BUN/Creatinine Ratio Glucose POC Whole Bld Glucose 274 H D 92 D 50 L Lactate Calcium Magnesium Total Bilirubin AST ALT Alkaline Phosphatase Total Protein Albumin Globulin Albumin/Globulin Ratio Prostate Specific Ag Nasal Screen MRSA (PCR) 04/21/25 04/21/25 04/21/25 08:46 09:30 11:11 WBC RBC Hgb Hct MCV MCH MCHC RDW Plt Count Neut % (Auto) Lymph % (Auto) [place] % (Auto) Eos % (Auto) Baso % (Auto) Neut # (Auto) Lymph # (Auto) [place] # (Auto) Eos # (Auto) Baso # (Auto) VBG pH VBG pCO2 VBG pO2 VBG HCO3 VBG Total CO2 VBG O2 Saturation VBG Base Excess FiO2 % Sodium Potassium Chloride Carbon Dioxide BUN Creatinine Estimated GFR BUN/Creatinine Ratio Glucose POC Whole Bld Glucose 75 125 H Lactate 1.6 Calcium Magnesium Total Bilirubin AST ALT Alkaline Phosphatase Total Protein Albumin Globulin Albumin/Globulin Ratio Prostate Specific Ag Nasal Screen MRSA (PCR) 04/21/25 04/21/25 04/21/25 16:30 18:35 20:07 WBC RBC Hgb Hct MCV MCH MCHC RDW Plt Count Neut % (Auto) Lymph % (Auto) [place] % (Auto) Eos % (Auto) Baso % (Auto) Neut # (Auto) Lymph # (Auto) [place] # (Auto) Eos # (Auto) Baso # (Auto) VBG pH VBG pCO2 VBG pO2 VBG HCO3 VBG Total CO2 VBG O2 Saturation VBG Base Excess FiO2 % Sodium Potassium 3.9 Chloride Carbon Dioxide BUN Creatinine Estimated GFR BUN/Creatinine Ratio Glucose POC Whole Bld Glucose 188 H 178 H Lactate Calcium Magnesium 1.5 L Total Bilirubin AST ALT Alkaline Phosphatase Total Protein Albumin Globulin Albumin/Globulin Ratio Prostate Specific Ag Nasal Screen MRSA (PCR) [facility] Surgical History H/O: knee surgery History of inguinal hernia repair Family History Brother Hypertension Hyperlipidemia Social History household members: none Smoking Status: Current some day smoker Smokeless tobacco user: other alcohol intake: current substance use type: does not use Assessment & Plan Assessment & Plan narrative: 1. DKA Anion gap has closed. His hemoglobin A1c is greater than 14% which reveals very poorly controlled diabetes. His blood sugars have been quite well controlled on 15 units of Lantus daily. Blood sugars have ranged between 125 and 220. Will continue the same dose of Lantus as well as fingersticks and sliding scale. Continue controlled carb diet. 2. UTI Ruled out. Urine culture was negative. 3. HILARIO w/bilateral hydronephrosis Secondary to severely enlarged prostatomegaly. Was placed on tamsulosin already. Will add finasteride. Discussed the importance of leaving a catheter in place until he can have a voiding trial with Urology. He expresses understanding. Also discussed his elevated PSA above 10. We discussed he could see Urology here in [place] or down in [place]. As he lives in [place], he would prefer to go to [place]. 4. Obstipation CT revealed a large fecal load which is likely contributing to his difficulty emptying his bladder. Will add MiraLax. 5. HTN Continue metoprolol. Blood pressure is fairly well controlled. 6. Chronic Gastric volvulus Presently asymptomatic 7. Kidney stones Presently asymptomatic Code status Full Prophy On lovenox. Dispo Plan to discharge home tomorrow Time-Based Coding :: [TOTAL MINUTES] spent with patient and on the chart (including review of chart, obtaining history, exam, reviewing outside data, placing orders, documenting exam and treatment plan, and counseling patient) on [DATE]. Quality VTE Deep Vein Thrombosis/Pulmonary Embolism Present on Admission: No
[2025-04-22] MEDS: FINASTERIDE 5 MG TABLET PO (12:25)
[2025-04-23 03:45] VITALS: BP 125/75; PULSE 61; RESP 15; TEMP 36.4; O2SAT 97
[2025-04-23 07:00] VITALS: BP 132/98; PULSE 67; RESP 20; O2SAT 97
[2025-04-23] MEDS: INSULIN LISPRO 100 UNIT/ML 3ML VIAL SUBCUT ×2 (08:15→12:29)
[2025-04-23] MEDS: INSULIN GLARGINE 100 UNIT/ML 3ML PEN 15 UNIT SUBCUT (08:16)
[2025-04-23 08:22] VITALS: BP 132/68; PULSE 67
[2025-04-23] MEDS: ATORVASTATIN 20 MG TABLET 80 MG PO (08:22)
[2025-04-23] MEDS: ASPIRIN EC 81 MG TABLET PO (08:22)
[2025-04-23] MEDS: METOPROLOL ER 25 MG TABLET PO (08:22)
[2025-04-23] MEDS: FINASTERIDE 5 MG TABLET PO (08:22)
[2025-04-23] MEDS: TAMSULOSIN 0.4 MG CAPSULE PO (08:22)
[2025-04-23] MEDS: SODIUM CHLORIDE 0.9% FLUSH 10 ML IV (08:23)
[2025-04-23] MEDS: ENOXAPARIN 40 MG/0.4 ML SYRINGE SUBCUT (08:23)
[2025-04-23 11:00] VITALS: BP 130/64; PULSE 62; RESP 20; O2SAT 95
[2025-04-23 12:09] VITALS: PULSE 59
--- NOTE | 2025-04-23 14:20 | CM.DPC ---
DCP Discharge Home Per MD, pt to discharge home today with henley cath in place and outpt f/u with Urology and pt preference is Urologist on [facility] due to location closer to home and referral will be made. Discharge instructions to be provided and transport via friend POV later today. GENTRY Edwards
--- NOTE | 2025-04-23 14:58 | PC.NURSE ---
Discharge Note Patient A&O, VSS, RA, no complaints of pain/discomfort. Patient agreeable to discharge plan, discharge packet reviewed with patient, all questions/concerns addressed. Catheter care completed with patient, all questions/concerns addressed. Patient given supplies/teaching for leg bag. PIV discontinued. Patient able to dress self and pack all belongings. Patient taken down via wheelchair to POV.
--- NOTE | 2025-04-23 20:19 | PM.DS.1 ---
History of Present Illness History of Present Illness Chief complaint: can't pee, swollen legs Narrative: Per H&P: 74 y/o with PMH of NIDDM, HTN, HLD, presented with bilateral leg swelling, difficulty urinating and exertional dyspnea that has been ongoing for the past few weeks and gradually worsening. ED workup showing enlarged prostate, bladder and b/l renal stones, hydronephrosis, UTI and DKA. He does not take anything for enlarged prostate, was not aware of stones and never had DKA before. Discharge Providers Provider Date of admission: 04/20/25 20:53 Discharge Date: 04/23/25 Discharge provider: Corinna Mendieta MD Summary Hospital Course Discharge Diagnosis: 1. DKA, resolved 2. UTI, ruled out 3. Bladder outlet obstruction with bilateral hydronephrosis, status post Ott catheter placement 4. Obstipation, now on MiraLax 5. Hypertension 6. Chronic gastric volvulus 7. Kidney stones 8. Elevated PSA Hospital Course: 74 yo male w/DM2, HTN, HLD, tobacco dependence admitted w/DKA, UTI, HILARIO d/t severe prostatomegaly (resulting in hydronephrosis; imaging also showed bilat renal stones). CT also showed a large fecal load, large hiatal hernia w/chronic gastric volvulus. He was treated with insulin and IV fluids. His DKA resolved quickly. He was placed on subcu Lantus 15 units daily. His A1c was greater than 14%. His blood sugars were well controlled on low dose insulin. At baseline, he was taking metformin, Jardiance, and Januvia. With regard to his bladder outlet obstruction, he was noted to have severe prostatomegaly and hydronephrosis. Ott catheter was placed with relief of 3 L of urine. He was initiated on Flomax and finasteride. A leg bag was placed prior to discharge. He was given instructions on care. He was encouraged to contact Urology on [facility] on the next business day, April 24, to request an appointment for a voiding trial this coming week. He was also advised to make an appointment for follow-up with regard to his elevated PSA. On his CT, he was noted to have significant fecal load. He was placed on daily MiraLax. He is encouraged to continue that discharge Patient is discharged in stable condition. Status at Discharge Cognitive/behavioral status at discharge: at baseline, oriented Functional status at discharge: independent ambulation Overall status at discharge: patient is progressing back to baseline Time Spent with Patient Time spent: Greater than 30 minutes Exam Vital Signs (past 8 hours): Oxygen Delivery Method Room Air Oxygen Flow Rate 0 Narrative Exam Narrative: GEN: Middle-aged male, Alert and oriented x 3, NAD HEENT:NC, Face symmetric CHEST: Respiratory excursions symmetric, CTAB CV: RRR, no M/R/G ABD: Soft, NT/ND, BT present in all 4 quadrants, no organomegaly or masses EXTR: warm, well perfused, no C/C/bilateral lower extremity pitting edema, dorsal feet have erythema and delayed capillary refill with difficult to palpate pulses SKIN: warm and dry, no rash NEURO: Alert and oriented x 3, nonfocal Objective Labs 04/22/25 04:51 04/22/25 04:51 Labs: Laboratory Results - last 24 hr 04/22/25 04/23/25 04/23/25 20:35 03:35 07:28 POC Whole Bld Glucose 211 H 164 H 238 H 04/23/25 11:59 POC Whole Bld Glucose 275 H PFSH Surgical History H/O: knee surgery History of inguinal hernia repair Family History Brother Hypertension Hyperlipidemia Social History household members: none Smoking Status: Current some day smoker Smokeless tobacco user: other alcohol intake: current substance use type: does not use Discharge Plan Discharge Plan Patient Disposition: Home Provider Discharge Comment: 1) Continue Ott catheter w/leg bag. Please send leg bag supplies and do teaching. Please teach him how to flush the catheter in the event he sees clots in the bag. 2) Monitor your bag for blood clots and flush if noted. 3) Be careful not to tug the catheter again as it will cause additional trauma and bleeding. 4) Call [facility] ([phone]) tomorrow morning. Explain you were hospitalized and you have been referred to them and need to be scheduled for a voiding trial. Additionally ask for a follow-up appointment regarding your elevated PSA test (10.8, up from 5.17 on 01/10/23) and prostate enlargement. Continue taking your insulin every day and monitoring your blood sugars at least twice a day, alternating between fasting in the morning, before lunch, before dinner, and bedtime. Call your MD for blood sugars below 80 or above 350. Return to the ED: fevers/chills/shortness of breath. Inability to urinate/catheter not emptying. inability to hold down food/fluids/medication. Discharge orders & Medications Prescriptions: New polyethylene glycol 3350 [Gavilax] 17 gram Powder In Packet 17 gm PO DAILY Qty: 30 0RF tamsulosin 0.4 mg Capsule 0.4 mg PO DAILY Qty: 30 0RF finasteride 5 mg Tablet 5 mg PO DAILY Qty: 30 0RF insulin glargine [Lantus Solostar U-100 Insulin] 100 unit/mL (3 mL) Insulin Pen 18 unit SUBCUT DAILY Qty: 5 0RF Continued losartan 25 mg tablet 25 mg PO DAILY metoprolol succinate 25 mg tablet extended release 24 hr 25 mg PO DAILY rosuvastatin 40 mg tablet 40 mg PO DAILY Jardiance 25 mg tablet 25 mg PO DAILY aspirin [Ira Low Dose Aspirin] 81 mg Tablet,Delayed Release (Dr/Ec) 81 mg PO DAILY Discharge Health Status Multidrug resistant organism: No MDRO Diet/Activity/Treatments Diet: Diet as Tolerated and Carb-consistent/Diabetic Activity: As tolerated Catheter: 2-way Ott Oxygen: N/A Visit Report/Discharge Packet Instructions: How to Care for Your Ott Catheter -- Male, DI for Diabetic Ketoacidosis Stand Alone Forms: Patient Portal/API, Stroke Signs & Symptoms Quality VTE Deep Vein Thrombosis/Pulmonary Embolism Present on Admission: No
== END 2025-04-23 14:15 | disposition home or self-care (01) | DRG 638 ==
LOC: ED 16:28 → AC 20:54 → ICU 21:05
PROVIDERS: Family Medicine; Hospitalist; Internal Medicine; Pharmacist Pharmacist Clinician (PhC)/ Clinical Pharmacy Specialist; Admitting Provider Internal Medicine; Emergency Provider Emergency Medicine; Referring Provider Emergency Medicine; Visit Provider Internal Medicine
DX: E11.10 Type 2 diabetes mellitus with ketoacidosis without coma (principal); N13.2 Hydronephrosis with renal and ureteral calculous obstruction; N17.9 Acute kidney failure, unspecified; N13.8 Other obstructive and reflux uropathy; F17.200 Nicotine dependence, unspecified, uncomplicated; N21.0 Calculus in bladder; K21.9 Gastro-esophageal reflux disease without esophagitis; K44.9 Diaphragmatic hernia without obstruction or gangrene; E78.5 Hyperlipidemia, unspecified; N18.32 Chronic kidney disease, stage 3b; I12.9 Hypertensive chronic kidney disease with stage 1 through stage 4 chronic kidney disease, or unspecified chronic kidney disease; D63.1 Anemia in chronic kidney disease; E87.6 Hypokalemia; N40.1 Benign prostatic hyperplasia with lower urinary tract symptoms; R33.8 Other retention of urine; K59.00 Constipation, unspecified; K31.89 Other diseases of stomach and duodenum; R97.20 Elevated prostate specific antigen [PSA]; Z79.84 Long term (current) use of oral hypoglycemic drugs; Z91.148 Patient's other noncompliance with medication regimen for other reason
CPT/HCPCS: 36415; 71045; 71275; 74177; 80048; 80053; 81001; 81003; 82009; 82805; 82962; 83036; 83605; 83735; 83880; 84132; 84153; 84484; 85025; 85610; 87040; 87086; 87797; 93005; 93010; 93306; 93971; 96365; 96367; 96368; 96375; 99284; 99291; 99292; J0696; J1650; J1815; J2272; J2470; J2543; J3375; J3475; Q9967